=== PATIENT | female | born 1935 | race Caucasian/White ===

== ENCOUNTER 2025-02-26 11:05 | Emergency (ER) | payer MEDICARE, SELFPAY ==
--- OUTSIDE RECORDS SUMMARY | 2025-02-26 11:11 | XMS_ITS | Encounter Summary ---
Author Organization [facility] Address [address] [place] [address] Care Team Providers Care Auto Emissions Technician Name Role Phone Bandar Zaman MD Primary Care Provider Encounter Details Date Type Department Care Team (Late st Contact Info) Description 12/16/1998 Outpatient Historical [facility] [place] [address] 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
--- OUTSIDE RECORDS SUMMARY | 2025-02-26 11:11 | XMS_ITS | Encounter Summary ---
Author Organization [facility] Address [address] [place] [address] Care Team Providers Care Re Examiner Name Role Phone Bandar Zaman MD Primary Care Provider Encounter Details Date Type Department Care Team (Latest Contact Info) Description 09/23/1997 Outpatient Historical [facility] [place] [address] [place] [address] Josef Christianson MD NO ADDRESS ON FILE Benign neoplasm of skin of other and unspecified parts of face (Primary Dx); Actinic keratosis Social History Tobacco Use Types Packs/Day Years Used Date Smoking Tobacco: Never Assessed Comments Unknown Sex and Gender Information Value Date Recorded Sex Assigned at Not on file 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
--- OUTSIDE RECORDS SUMMARY | 2025-02-26 11:11 | XMS_ITS | Encounter Summary ---
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 (Primary Dx); Pure hypercholesterolem; SCREENING MAL NEOP-CERVIX Social History Tobacco Use Types Packs/Day Years Used Date Smoking Tobacco: Never Assessed Comments Unknown Sex and Gender Information Value Date Recorded Sex Assigned at Not on file 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 Gender Identity Not on file Sexual Orientation Not on file documented as of this encounter Plan of Treatment Not on file documented as of this encounter Visit Diagnoses Diagnosis Encounter for long-term (current) use of other medications- Primary Pure hypercholesterolem Pure hypercholesterolemia Screening for malignant neoplasm of the cervix documented in this encounter Care Teams Power And Recovery Supervisor Relationship Specialty Start Date End Date Bandar Zaman MD [address] [facility] [address] [place] [phone] PCP - General Internal Medicine 05/03/16 documented as of this encounter
--- OUTSIDE RECORDS SUMMARY | 2025-02-26 11:11 | XMS_ITS | Encounter Summary ---
Author Organization [facility] Address [address] [place] [address] Care Team Providers Care First Aid Instructor Name Role Phone Bandar Zaman MD Primary Care Provider Encounter Details Date Type Department Care Team (Latest Contact Info) Description 12/10/1997 Outpatient [facility] [address] [place] [address] Bandar Zaman MD [address] [place] [address] Other and unspecified hyperlipidemia (Primary Dx); Routine medical exam; Screening for malignant neoplasm of the cervix Social History Tobacco Use Types Packs/Day Years Used Date Smoking Tobacco: Never Assessed Comments Unknown Sex and Gender Information Value Date Recorded Sex Assigned at Not on file 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 Gender Identity Not on file Sexual Orientation Not on file documented as of this encounter Plan of Treatment Not on file documented as of this encounter Visit Diagnoses Diagnosis Other and unspecified hyperlipidemia- Primary Routine medical exam Routine general medical examination at a health care facility Screening for malignant neoplasm of the cervix documented in this encounter Care Teams First Aid Instructor Relationship Specialty Start Date End Date Bandar Zaman MD [address] [place] [id number] PCP - General Internal Medicine 05/03/16 documented as of this encounter
--- OUTSIDE RECORDS SUMMARY | 2025-02-26 11:11 | XMS_ITS | Clinical Summary ---
Author Organization [facility] Address [address] [address] Care Team Providers Care Embedder Name Role Phone Bandar Zaman MD Primary Care Provider [phone] Social History Tobacco Use Types Packs/Day Years Used Date Smoking Tobacco: Never Assessed Comments Unknown Sex and Gender Information Value Date Recorded Sex Assigned at Not on file Legal Sex Female 1:23 PM EST Gender Identity Not on file Sexual Orientation Not on file Plan of Treatment Health Maintenance Due Date Last Done Comments Influenza Vaccine (#1) 2025 9, 03/11/2018, 03/27/2017, Additional history exists Pneumococcal Vaccine: 50+ Years Completed 11/15/2016, 09/18/2009, 04/08/2003 Hepatitis B Vaccine Aged Out No longe r eligible based on patient's age to complete this topic [place] [address] Medicare Care Teams Embedder Relationship Specialty Start Date End Date Bandar Zaman MD [address] [facility] [address] [place] [address] PCP - General Internal Medicine 08/03/22
--- OUTSIDE RECORDS SUMMARY | 2025-02-26 11:11 | XMS_ITS | Clinical Summary ---
Author Organization [facility] Address [address] [place] [address] Care Team Providers Care Floor Broker Name Role Phone Bandar Zaman MD Primary Care Provider [phone] Allergies Active Allergy Reactions Criticality Noted Date Comments Atorvastatin Muscle Pain Low 05/04/2008 Olmesartan Itching Low 12/22/2024 Medications docusate sodium (Stool Softener) 100 mg capsule Take 100 mg by mouth 1 time daily as needed. 11/13/19 19 Active aspirin (ECOTRIN EC) 81 mg Tablet, Delayed Release (E.C.) Take 81 mg by mouth daily. Active multivitamin (DAILY-ANNALEE) tablet Take 1 Tablet by mouth daily. Active magnesium oxide (MAG-OX) 400 mg (241.3 mg magnesium) tablet Take 1 Tablet (400 mg) by mouth daily. 08/06/19 23 Active mupirocin (BACTROBAN) 2 % Ointment Apply to affected area daily. 15 Gram 1 10/13/19 23 Active Additional Information Patient not taking.Reported on 12/22/2024 furosemide (LASIX) 40 mg tablet TAKE ONE TABLET BY MOUTH DAILY 100 Tablet 3 11/05/19 25 Active potassium CHLORIDE (KLOR-CON M10) 10 mEq Extended Release tablet TAKE 1 TABLET EVERY DAY 90 Tablet 3 11/11/19 25 Active metoprolol tartrate (LOPRESSOR) 50 mg tabletIndicatio ns:Essential hypertension TAKE 1 TABLET TWICE DAILY 180 Tablet 3 11/11/19 25 Active rosuvastatin (CRESTOR) 20 mg tablet Take 1 Tablet (20 mg) by mouth daily at bedtime. 100 Tablet 3 12/23/19 25 Active Eliquis 2.5 mg tabletIndicatio ns:Paroxysmal atrial fibrillation with rapid ventricular response (CMS/HCC) TAKE 1 TABLET TWICE DAILY 180 Tablet 3 02/07/20 25 Active apixaban (Eliquis) 2.5 mg tabletIndicatio ns:Paroxysmal atrial fibrillation with rapid ventricular response (CMS/HCC) TAKE 1 TABLET TWICE DAILY 200 Tablet 3 04/18/20 24 025 Discontinued Active Problems Problem Noted Date Diagnosed Date Prediabetes 08/19/2024 Congestive heart failure 11/26/2022 Multinodular goiter 06/02/2015 Essential hypertension 05/11/2011 Old myocardial infarction 10/31/2010 ASCVD (arteriosclerotic cardiovascular disease) 12/12/2009 Hypercholesterolemia 05/12/2008 Resolved Problems Problem Noted Date Diagnosed Date Resolved Date Hyponatremia 08/02/2022 12/22/2024 Moderate protein-calorie malnutrition 07/31/2022 08/11/2022 Acute respiratory failure with hypoxia 07/30/2022 08/02/2022 Paroxysmal atrial fibrillati on with rapid ventricular response 07/29/2022 12/21/2023 Acute on chronic diastolic ( congestive) heart failure 07/29/2022 12/18/2022 Elevated d-dimer 07/29/2022 11/29/2022 Hypoxia 07/29/2022 08/02/2022 At risk for malnutrition 07/29/2022 Pleural effusion 07/29/2022 08/11/2022 Chronic kidney disease, stage III (moderate) 5 11/19/2017 Encounter for long-term (cur rent) use of other medications 10/13/2009 11/15/2016 Coronary stent 10/12/2009 11/15/2016 Acute myocardial infarction, unspecified site, initial episode of care 10/12/2009 11/20/2018 Encounters Date Type Department Care Team Description 02/25/2025 External Device Data [facility] ABSTRACTION Provider, Abstract 02/06/2025 Refill [facility] [address] [place] [address] Bandar Zaman MD Paroxysmal atrial fibrillation with rapid ventricular response (CMS/HCC) 01/28/2025 External Device Data [facility] ABSTRACTION Provider, Abstract 12/30/2024 External Device Data [facility] ABSTRACTION Provider, Abstract 12/22/2024 2:00 PM CDT Office Visit [facility] [address] [place] [address] Bandar Zaman MD Routine general medical examination at a health care facility (Primary Dx); ASCVD (arteriosclerotic cardiovascular disease); Chronic diastolic congestive heart failure (CMS/HCC); Essential hypertension; Prediabetes 12/16/2024 9:00 AM CDT Procedure visit [address] [address] 12/08/2024 Refill [facility] [address] [place] [address] Bandar Zaman MD 12/03/2024 Orders Only [facility] [address] [place] [address] Bandar Zaman MD Essential hypertension (Primary Dx); Hypercholesterolemia; Abnormal glucose; Encounter for routine adult health examination without abnormal findings 11/26/2024 External Device Data [facility] ABSTRACTION Provider, Abstract from Last 3 Months Immunizations Immunization Administration Dates Next Due (PFIZER SANDOVAL)(12 YR UP PRIMA RY SERIES) COVID-19 VACCINE - EMERGENCY USE AUTHORIZATION, MRNA, SANDOVAL(PF) 30 MCG/0.3 ML IM SUSP 09/14/2021 (PFIZER)(12 YR UP) COVID-19 VACCINE - EMERGENCY USE AUTHORIZATION, MRNA, [id number](PF) 30 MCG/0.3 ML IM SUSP 03/03/2022,03/24/2021,08/11/2020,07/20 (PNEUMOVAX 23)(50 YRS UP) PN EUMOCOCCAL POLYSACCHARIDE (PPV23) 0.5 ML, IM 04/08/2003 (PREVNAR 13)(6 WKS UP) PNEUM OCOCCAL CONJUGATE (PCV13) 0.5 ML, IM 11/15/2016 (PREVNAR 20)(6 WKS UP) PNEUM OCOCCAL CONJUGATE VACCINE 20-VALENT (PCV20), POLYSACCHARIDE [id number] CONJUGATE, ADJUVANT 0.5 ML (PF) IM 12/21/2023 (SHINGRIX)(50 YRS UP) ZOSTER VACCINE RECOMBINANT, 0.5 ML, IM 03/31/2019 (SPIKEVAX 5-)(12YR UP) COVID-19 VACCINE, MRNA (PF)50 MCG/0.5 ML, IM SYRINGE 04/11/2023 INFLUENZA VACCINE HIGH DOSE QUADRIVALENT 65 YR UP PF IM 03/01/2020 INFLUENZA VACCINE QUADRIVALE NT 3 YR UP PF IM 03/27/2017,03/23/2016 Influenza Seasonal Unspecifi ed Formulation IM 03/26/2023,03/01/2022,03/16/2021,04/18,04/03/2006,04/06/2005,03/23/2004 ,03/25/2003,03/24/1999 Influenza Vaccine High Dose 65+ Yrs IM 9,03/11/2018 Influenza Vaccine Quad Split 3+ Yrs Im 5,03/23/2014 Influenza Vaccine Split 3+ Yrs IM 03/18/2013,04/2012,03/18/2008 Pneumococcal 7-valent conjug ate vaccine IM 09/18/2009 Zoster Vaccine Live SQ 08/25/2009 Family History Medical History Relation Name Comments Respiratory Disease Father Osteoporosis Mother Breast Cancer Neg Hx Relation Name Status Comments Father Mother Social History Tobacco Use Types Packs/Day Years Used Date Smoking Tobacco: Never Smokeless Tobacco: Never Tobacco Cessation:Counseling Given: Not Answered Alcohol Use Standard Drinks/Week Comments No 0 (1 standard drink = 0.6 oz pur e alcohol) Financial Resource Strain Answer Date R ecorded How hard is it for you to pa y for the very basics like food, housing, medical care, and heating? Not hard at all 12/15/2021 Food Insecurity Answer Date Recorded In the past 12 months, have you worried that your food would run out before you had money to buy more? Never true 12/15/2021 In the past 12 months, did y ou run out of food and didn't have money to buy more? Never true 12/15/2021 Transportation Needs Answer Date Record ed In the past 12 months, has l ack of transportation kept you from medical appointments or from getting medications? No 12/15/2021 Lack of Transportation (Non-Medical) Not on file 12/15/2021 Feeling Safe Answer Date Recorded Are you in a relationship wi th someone who hurts you emotionally and/or physically? 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 Gender Identity Not on file Sexual Orientation Not on file Last Filed Vital Signs Vital Sign Reading Time Taken Comments Blood Pressure 126/70 12/22/2024 2:02 PM CDT Pulse 90 12/22/2024 2:02 PM CDT Temperature 36.1 C (97 F) 11/27/2022 11:11 AM CDT Respiratory Rate 18 11/27/2022 8:38 AM CDT Oxygen Saturation 99% 12/22/2024 2:02 PM CDT Inhaled Oxygen Concentration - - Weight 49.9 kg (110 lb) 12/22/2024 2:02 PM CDT Height 158.8 cm (5' 2.5 ) 12/22/2024 2:02 PM CDT Body Mass Index 19.8 12/22/2024 2:02 PM CDT Plan of Treatment Upcoming Encounters Date Type Department Care Team (Late st Contact Info) Description 10/27/2025 9:40 AM CDT Office Visit [facility] [address] [place] [address] Cherie Rodriguez FNP [address] [place] [address] 12/24/2025 1:00 PM CDT Office Visit [facility] [address] [place] [address] Bandar Zaman MD [address] [place] [phone] Health Maintenance Due Date Last Done Comments DTAP/TDAP/TD VACCINES (1 - Tdap) 1954 RSV VACCINE (60+ or ) (1 - 1-dose 75+ series) 2010 OSTEOPOROSIS SCREENING 12/16/2014 12/16/2009, 2009 ZOSTER VACCINE (3 of 3) 05/26/2019 03/31/2019, 08/25 INFLUENZA VACCINE (#1) 2025 , 03/26/2023, 03/01/2022, Additional history exists COVID-19 Vaccine (2023-2 5 season) 2025 02/26/2024, 04/11/2023, 03/03/2022, Additional history exists PNEUMOCOCCAL VACCINE 50+ YEARS Completed 0 12/21/2023, 11/15/2016, 09/18/2009, Additional history exists Medicare Advantage ([place]) Preventative Visit/Annual Wellness Visit Completed 12/22/2024, 12/21/2023, 12/18/2022, Additional history exists Procedures Procedure Name Priority Date/Time Associated Diagnosis Comments TSH REFLEXIVE Routine 12/16/2024 8:35 AM CDT Essential hypertension Hypercholesterolemi a Abnormal glucose Encounter for routine adult health examination without abnormal findings HEMOGLOBIN A1C Routine 12/16/2024 8:35 AM CDT Essential hypertension Hypercholesterolemi a Abnormal glucose Encounter for routine adult health examination without abnormal findings LIPID PANEL Routine 12/16/2024 8:35 AM CDT Essential hypertension Hypercholesterolemi a Abnormal glucose Encounter for routine adult health examination without abnormal findings COMPREHENSIVE METABOLIC PANEL Routine 12/16/2024 8:35 AM CDT Essential hypertension Hypercholesterolemi a Abnormal glucose Encounter for routine adult health examination without abnormal findings CBC WITH DIFFERENTIAL Routine 12/16/2024 8:35 AM CDT Essential hypertension Hypercholesterolemi a Abnormal glucose Encounter for routine adult health examination without abnormal findings XR DEXA BONE DENSITY AXIAL 1 OR MORE SITES Routine 12/16/2009 11:39 AM CDT Closed fracture of lumbar vertebra (CMS/HCC) from Last 3 Months or Most Recently Relevant to Health Maintenance Results * TSH REFLEXIVE (12/16/2024 8:35 AM CDT) TSH 1.45 0.40 - 4.50 mIU/L [facility] Comment: FASTING:YES FASTING: YES Test Performed at: [facility] [address] [place] [address] Darren Juarez MD Blood 12/16/2024 8:35 AM CDT 12/16/2024 8:35 AM CDT us Bandar Zaman MD CHEMISTRY ORDERABLES Final Res ult [facility] [phone] [facility] [address] [place] [address] * (ABNORMAL) CBC WITH DIFFERENTIAL (12/16/2024 8:35 AM CDT) WBC 5.9 3.8 - 10.8 Thousand/u L [facility] RBC 5.18(H) 3.80 - 5.10 Million/uL [facility] HEMOGLOBIN 14.4 11.7 - 15.5 g/dL [facility] HEMATOCRIT 46.8(H) 35.0 - 45.0 % [facility] MCV 90.3 80.0 - 100.0 fL [facility] MCH 27.8 27.0 - 33.0 pg [facility] MCHC 30.8(L) 32.0 - 36.0 g/dL [facility] Comment: For adults, a slight decrease in the calculated MCHC value (in the range of 30 to 32 g/dL) is most likely not clinically significant; however, it should be interpreted with caution in correlation with other red cell parameters and the patient's clinical condition. RDW 13.8 11.0 - 15.0 % [facility] PLATELETS 260 140 - 400 Thousand/u L [facility] MPV 11.1 7.5 - 12.5 fL [facility] NEUTROPHIL ABSOLUTE 3,859 1,500 - 7,800 cells/uL [facility] LYMPHOCYTE ABSOLUTE 1,392 850 - 3,900 cells/uL [facility] MONOCYTE ABSOLUTE 484 200 - 950 cells/uL [facility] EOSINOPHIL ABSOLUTE 118 15 - 500 cells/uL [facility] BASOPHILS ABSOLUTE 47 0 - 200 cells/uL [facility] NEUTROPHIL 65.4 % [facility] LYMPHOCYTES 23.6 % [facility] MONOCYTE 8.2 % [facility] EOSINOPHILS 2.0 % [facility] BASOPHILS 0.8 % [facility] Comment: FASTING:YES FASTING: YES Test Performed at: [facility] [address] [place] [address] Darren Juarez MD Blood 12/16/2024 8:35 AM CDT 12/16/2024 8:35 AM CDT us Bandar Zaman MD HEMATOLOGY ORDERABLES Final Re sult [facility] [phone] [facility] [address] [place] [address] * (ABNORMAL) HEMOGLOBIN A1C (12/16/2024 8:35 AM CDT) HEMOGLOBIN A1C 6.3(H) <5.7 % [facility] Comment: For someone without known diabetes, a hemoglobin A1c value between 5.7% and 6.4% is consistent with prediabetes and should be confirmed with a follow-up test. For someone with known diabetes, a value <7% indicates that their diabetes is well controlled. A1c targets should be individualized based on duration of diabetes, age, comorbid conditions, and other considerations. This assay result is consistent with an increased risk of diabetes. Currently, no consensus exists regarding use of hemoglobin A1c for diagnosis of diabetes for children. ESTIMATED AVERAGE GLUCOSE (MG/DL) 134 mg/dL [facility] ESTIMATED AVERAGE GLUCOSE (MMOL/L) 7.4 mmol/L [facility] Comment: FASTING:YES FASTING: YES Test Performed at: [facility] [address] [place] [address] Darren Juarez MD Blood 12/16/2024 8:35 AM CDT 12/16/2024 8:35 AM CDT us Bandar Zaman MD CHEMISTRY ORDERABLES Final Res ult [facility] [phone] [facility] [place] [address] * LIPID PANEL (12/16/2024 8:35 AM CDT) CHOLESTEROL 165 <200 mg/dL [facility] HDL 71 > OR = 50 mg/dL [facility] TRIGLYCERIDE 84 <150 mg/dL [facility] LDL CALCULATED 78 mg/dL (calc) [facility] Comment: Reference range: <100 Desirable range <100 mg/dL for primary prevention; <70 mg/dL for patients with CHD or diabetic patients with > or = 2 CHD risk factors. LDL-C is now calculated using the Samy-Tian calculation, which is a validated novel method providing better accuracy than the Friedewald equation in the estimation of LDL-C. Samy SS et al. CAL. 2013;310(19): 5640-7588 (http://education.[employer]Kinoos/faq/AQL475) CHOL/HDL RATIO 2.3 <5.0 (calc) [facility] NON-HDL CHOLESTEROL 94 <130 mg/dL (calc) [facility] Comment: For patients with diabetes plus 1 major ASCVD risk factor, treating to a non-HDL-C goal of <100 mg/dL (LDL-C of <70 mg/dL) is considered a therapeutic option. Test Performed at: [facility] [address] [place] [address] Darren Juarez MD Blood 12/16/2024 8:35 AM CDT 12/16/2024 8:35 AM CDT us Bandar Zaman MD CHEMISTRY ORDERABLES Final Res ult [facility] [phone] [facility] [address] [facility] [place] [address] * (ABNORMAL) COMPREHENSIVE METABOLIC PANEL (12/16/2024 8:35 AM CDT) GLUCOSE 105(H) 65 - 99 mg/dL [facility] Comment: Fasting reference interval For someone without known diabetes, a glucose value between 100 and 125 mg/dL is consistent with prediabetes and should be confirmed with a follow-up test. BUN 38(H) 7 - 25 mg/dL [facility] CREATININE 1.38(H) 0.60 - 0.95 mg/dL [facility] GFR 37(L) > OR = 60 mL/min/1.7 3m2 [facility] BUN/CREAT RATIO 28(H) 6 - 22 (calc) [facility] SODIUM 139 135 - 146 mmol/L [facility] POTASSIUM 4.0 3.5 - 5.3 mmol/L [facility] CHLORIDE 98 98 - 110 mmol/L [facility] CO2 32 20 - 32 mmol/L [facility] CALCIUM 9.6 8.6 - 10.4 mg/dL [facility] TOTAL PROTEIN 7.6 6.1 - 8.1 g/dL [facility] ALBUMIN 4.0 3.6 - 5.1 g/dL [facility] GLOBULIN 3.6 1.9 - 3.7 g/dL (calc) [facility] ALBUMIN/GLOBULIN RATIO 1.1 1.0 - 2.5 (calc) [facility] BILIRUBIN TOTAL 0.7 0.2 - 1.2 mg/dL [facility] ALKALINE PHOSPHATASE 71 37 - 153 U/L [facility] AST 24 10 - 35 U/L [facility] ALT 13 6 - 29 U/L [facility] Comment: FASTING:YES FASTING: YES Test Performed at: [facility] [address] [place] [address] Darren Juarez MD Blood 12/16/2024 8:35 AM CDT 12/16/2024 8:35 AM CDT us Bandar Zaman MD CHEMISTRY ORDERABLES Final Res ult [facility] [phone] [facility] [address] [place] [address] * XR DEXA BONE DENSITY AXIAL 1 OR MORE SITES (12/16/2009 11:39 AM CDT) Anatomical Region Laterality Modality Other Impressions 12/17/2009 4:08 PM CDT Impression: The patient does not have osteoporosis or significant osteopenia at this time and, therefore, is not at increased risk for fragility fracture. She has only mild osteopenia of both the lumbar spine and left hip. Risk factor control might be considered in an effort to prevent further bone mineral loss. Consideration might also be given to repeating this examination in 3-4 years to assess patient's rate of bone mineral loss. isma 0955 AM - uploaded from [employer]- Narrative 12/17/2009 4:08 PM CDT DEXA Evaluation of the Lumbar Spine and Left Proximal Femur: Reason for Consultation: Status post menopause. Compression fracture. Evaluation of bone mineral density. The following absorptiometry data were obtained. The overall technical quality of the study is good. Serial measurement number one. L1 through L2 BMD (g/cm2): 1.003 Young adult %: 86 Adult T-score: -1.4 Left Femoral Neck BMD (g/cm2): 0.859 Young adult %: 83 Adult T-score: -1.3 Left Total Hip BMD (g/cm2): 0.896 Young adult %: 89 Adult T-score: -0.9 The patient demonstrates mild osteopenia of the trabecular bone of her lumbar spine. She has approximately 14% less mineral than the mean projected for a young normal, ages 20-40. She demonstrates mild osteopenia in the neck region and normal bone mineral density of the total hip region of the left hip. Procedure Note Ronny Mckeon MD - 08/24/2022 DEXA Evaluation of the Lumbar Spine and Left Proximal Femur: Reason for Consultation: Status post menopause. Compression fracture. Evaluation of bone mineral density. The following absorptiometry data were obtained. The overall technical quality of the study is good. Serial measurement number one. L1 through L2 BMD (g/cm2): 1.003 Young adult %: 86 Adult T-score: -1.4 Left Femoral Neck BMD (g/cm2): 0.859 Young adult %: 83 Adult T-score: -1.3 Left Total Hip BMD (g/cm2): 0.896 Young adult %: 89 Adult T-score: -0.9 The patient demonstrates mild osteopenia of the trabecular bone of her lumbar spine. She has approximately 14% less mineral than the mean projected for a young normal, ages 20-40. She demonstrates mild osteopenia in the neck region and normal bone mineral density of the total hip region of the left hip. IMPRESSION Impression: The patient does not have osteoporosis or significant osteopenia at this time and, therefore, is not at increased risk for fragility fracture. She has only mild osteopenia of both the lumbar spine and left hip. Risk factor control might be considered in an effort to prevent further bone mineral loss. Consideration might also be given to repeating this examination in 3-4 years to assess patient's rate of bone mineral loss. isma 0955 AM - uploaded from [employer] Scribe- us Sammie Doe MD DIAGNOSTIC IMAGING ORDERABLES F inal Result from Last 3 Months or Most Recently Relevant to Health Maintenance Insurance [facility] MCR Advance Directives For more information, please contact: [phone] * Full Code (Latest Code Status on File) Date Activated Date Inactivated Comments 11/26/2022 12:26 AM 11/27/2022 5:15 PM * NO CPR (In Event of Cardiopulmonary Arrest) Date Activated Date Inactivated Comments 07/29/2022 12:33 PM 08/06/2022 2:51 PM Question Answer Comments Mechanical Ventilation (for respiratory distress) - Invasive (i.e. intubation): No Mechanical Ventilation (for respiratory distress) - Non-Invasive (i.e. BiPAP, CPAP): Yes * Default Full Code - Needs Discussion Date Activated Date Inactivated Comments 07/29/2022 12:31 PM 07/29/2022 12:32 PM * NO CPR (In Event of Cardiopulmonary Arrest) Date Activated Date Inactivated Comments 07/29/2022 12:25 PM 07/29/2022 12:31 PM Question Answer Comments Mechanical Ventilation (for respiratory distress) - Invasive (i.e. intubation): No Mechanical Ventilation (for respiratory distress) - Non-Invasive (i.e. BiPAP, CPAP): Yes Care Teams Floor Broker Relationship Specialty Start Date End Date Bandar Zaman MD [address] [facility] [place] [address] [place] [address] PCP - General Internal Medicine 05/03/16
--- OUTSIDE RECORDS SUMMARY | 2025-02-26 11:11 | XMS_ITS | Encounter Summary ---
Author Organization [facility] Address [address] [place] [address] Care Team Providers Care Trench Digging Machine Operator Name Role Phone Bandar Zaman MD Primary Care Provider [phone] Encounter Details Date Type Department Care Team (Latest Contact Info) Description 05/01/2002 Outpatient [facility] [address] [place] [address] Josef Christianson MD NO ADDRESS ON FILE ACTINIC KERATOSIS (Primary Dx); SEBACEOUS GLAND DIS NEC Social History Tobacco Use Types Packs/Day Years Used Date Smoking Tobacco: Never Assessed Comments Unknown Sex and Gender Information Value Date Recorded Sex Assigned at Not on file Legal Sex Female 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
--- OUTSIDE RECORDS SUMMARY | 2025-02-26 11:11 | XMS_ITS | Encounter Summary ---
Author Organization [facility] Address [address] [place] [address] Care Team Providers Care Roofing Tile Sorter Name Role Phone Bandar Zaman MD Primary Care Provider [phone] Encounter Details Date Type Department Care Team (Latest Contact Info) Description 12/16/1998 Outpatient Historical [facility] [address] [place] [address] Bandar Zaman MD [address] [place] [address] Routine medical exam (Primary Dx); Pure hypercholesterolem; Elevated blood pressure reading without diagnosis of hypertension Social History Tobacco Use Types Packs/Day Years Used Date Smoking Tobacco: Never Assessed Comments Unknown Sex and Gender Information Value Date Recorded Sex Assigned at Not on file 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 Gender Identity Not on file Sexual Orientation Not on file documented as of this encounter Plan of Treatment Not on file documented as of this encounter Visit Diagnoses Diagnosis Routine medical exam- Primary Routine general medical examination at a health care facility Pure hypercholesterolem Pure hypercholesterolemia Elevated blood pressure reading without diagnosis of hypertension documented in this encounter Care Teams Roofing Tile Sorter Relationship Specialty Start Date End Date Bandar Zaman MD [address] [place] [address] PCP - General Internal Medicine 05/03/16 documented as of this encounter
--- OUTSIDE RECORDS SUMMARY | 2025-02-26 11:11 | XMS_ITS | Clinical Summary ---
Author Organization [facility] tone Address [address] [place] [address] Care Team Providers Care Insurance Manager Name Role Phone Bandar Zaman MD Primary Care Provider [phone] Allergies Active Allergy Reactions Criticality Noted Date Comments Atorvastatin Muscle Pain Low 05/04/2008 Medications aspirin (NABEEL) 81 mg Oral Tab Take 2 Tabs by mouth daily. 100 Tab 6 02/13/2012 Active nitroglycerin (NITROSTAT) 0.4 mg Tablet, Sublingual Place 1 Tab under tongue every 5 minutes as needed for Chest Pain. 25 Tab 3 04/07/2014 Active SPONIX ARTHRITIS-MUSCL E PAIN 4-10-0.035 % solution roll-on 11/12/2018 Active STOOL SOFTENER 100 mg capsule 11/12/2018 Acti ve metoprolol tartrate (LOPRESSOR) 25 mg tablet TAKE 1 TABLET (25 MG) BY MOUTH 2 TIMES DAILY. 180 Tablet 4 02/11/2019 Active ezetimibe (ZETIA) 10 mg tablet TAKE 1 TABLET EVERY DAY 90 Tablet 3 02/13/2020 Active losartan (COZAAR) 100 mg tablet TAKE 1 TABLET EVERY DAY 90 Tablet 3 08/02/2020 Active Active Problems Problem Noted Date Diagnosed Date Multinodular goiter 06/02/2015 Essential hypertension 05/11/2011 Old myocardial infarction 10/31/2010 ASCVD (arteriosclerotic cardiovascular disease) 12/12/2009 Hypercholesterolemia 05/12/2008 Resolved Problems Problem Noted Date Diagnosed Date Resolved Date Chronic kidney disease, stage III (moderate) 5 11/19/2017 Encounter for long-term (cur rent) use of other medications 10/13/2009 11/15/2016 Coronary stent 10/12/2009 11/15/2016 Acute myocardial infarction, unspecified site, initial episode of care 10/12/2009 11/20/2018 Immunizations Immunization Administration Dates Next Due (ValueClick)(12 YR UP) COVID-19 VACCINE - EMERGENCY USE AUTHORIZATION, MRNA, [id number](PF) 30 MCG/0.3 ML IM SUSP 07/20/2020 (PNEUMOVAX 23)(50 YRS UP) PN EUMOCOCCAL POLYSACCHARIDE (PPV23) 0.5 ML, IM 04/08/2003 (PREVNAR 13)(6 WKS UP) PNEUM OCOCCAL CONJUGATE (PCV13) 0.5 ML, IM 11/15/2016 (SHINGRIX)(50 YRS UP) ZOSTER VACCINE RECOMBINANT, 0.5 ML, IM 03/31/2019 INFLUENZA VACCINE HIGH DOSE QUADRIVALENT 65 YR UP PF IM 03/01/2020 INFLUENZA VACCINE QUADRIVALE NT 3 YR UP PF IM 03/27/2017,03/23/2016 Influenza Seasonal Unspecifi ed Formulation IM 04/18/2009,04/03/2006,04/06/2005,03/23,03/25/2003,03/24/1999 Influenza Vaccine High Dose 65+ Yrs IM [...] Never Smokeless Tobacco: Never Tobacco Cessation:Counseling Given: No Alcohol Use Standard Drinks/Week Comments No 0 (1 standard drink = 0.6 oz pur e alcohol) Comments No Sex and Gender Information Value Date Recorded Sex Assigned at Not on file Legal Sex Female 6:08 AM DIRECTOR ORACLE RETAIL Gender Identity Not on file Sexual Orientation Not on file Occupation Industry Job Start Date Job End Date Not on file Not on file Not on file Not on file Last Filed Vital Signs Vital Sign Reading Time Taken Comments Blood Pressure 160/98 12/01/2019 8:07 AM CDT Pulse 67 12/01/2019 8:07 AM CDT Temperature 36.1 C (97 F) 12/07/2015 8:07 AM CDT Respiratory Rate 16 05/03/2016 10:02 AM DIRECTOR ORACLE RETAIL Oxygen Saturation 98% 12/01/2019 8:07 AM CDT Inhaled Oxygen Concentration - - Weight 78.9 kg (174 lb) 12/01/2019 8:07 AM CDT Height 165.7 cm (5' 5.25 ) 12/01/2019 8:07 AM CD T Body Mass Index 28.73 12/01/2019 8:07 AM CDT Plan of Treatment Health Maintenance Due Date Last Done Comments DTAP/TDAP/TD VACCINES (1 - Tdap) 1954 RSV VACCINE (60+ or ) (1 - 1-dose 75+ series) 2010 OSTEOPOROSIS SCREENING 12/16/2014 12/16/2009 ZOSTER VACCINE (3 of 3) 05/26/2019 03/31/2019, 08/25 INFLUENZA VACCINE (#1) 2025 0, 03/19/2019, 03/11/2018, Additional history exists COVID-19 Vaccine (2 - 2024-2 6 season) 2025 07/20/2020 PNEUMOCOCCAL VACCINE 50+ YEARS Completed 0 11/15/2016, 09/18/2009, 04/08/2003 Procedures Procedure Name Priority Date/Time Associated Diagnosis Comments XR DEXA BONE DENSITY AXIAL 1 OR MORE SITES Routine 12/16/2009 11:39 AM CDT Compression Fracture of L4 Lumbar Vertebra (CMS/HCC) from Last 3 Months or Most Recently Relevant to Health Maintenance Results * XR DEXA BONE DENSITY AXIAL 1 OR MORE SITES (12/16/2009 11:39 AM CDT) Anatomical Region Laterality Modality Nuclear Medicine 12/16/2009 11:2 7 AM CDT Impressions 12/17/2009 4:08 PM CDT Impression: The [...] loss. isma 0955 AM - uploaded from [employer]- Rank By Search 12/17/2009 4:08 PM CDT DEXA Evaluation of [...] hip. Procedure Note Ronny Mckeon MD - 12/17/2009 DEXA Evaluation of the Lumbar Spine and [...] loss. isma 0955 AM - uploaded from [employer]- us Sammie Doe MD DIAGNOSTIC IMAGING ORDERABLES F inal Result from Last 3 Months or Most Recently Relevant to Health Maintenance Advance Directives For more information, please contact: [phone] * Full Code (Latest Code Status on File) Date Activated Date Inactivated Comments 09/29/2009 11:26 AM 09/30/2009 12:05 PM * Full Code Date Activated Date Inactivated Comments 09/29/2009 6:52 AM 09/29/2009 11:26 AM * Full Code Date Activated Date Inactivated Comments 09/16/2009 5:53 PM 09/18/2009 3:11 PM * Full Code Date Activated Date Inactivated Comments 09/16/2009 3:32 PM 09/16/2009 5:53 PM Care Teams Insurance Manager Relationship Specialty Start Date End Date Bandar Zaman MD [address] [facility] [address] [place] [phone] PCP - General Internal Medicine 05/03/16
--- OUTSIDE RECORDS SUMMARY | 2025-02-26 11:11 | XMS_ITS | Encounter Summary ---
Author Organization [facility] Address [address] [place] [address] Care Team Providers Care Director Of Vital Statistics Name Role Phone Bandar Zaman MD Primary Care Provider [phone] Encounter Details Date Type Department Care Team (Latest Contact Info) Description 03/25/2001 Outpatient Historical [facility] [place] [address] [place] [phone] Adina Savage MD NO ADDRESS ON FILE Other screening mammogram (Primary Dx) Social History Tobacco Use Types Packs/Day Years Used Date Smoking Tobacco: Never Assessed Comments Unknown Sex and Gender Information Value Date Recorded Sex Assigned at Not on file Legal Sex Female 6:08 AM BOW STAPLER Gender Identity Not on file Sexual Orientation Not on file documented as of this encounter Plan of Treatment Not on file documented as of this encounter Visit Diagnoses Diagnosis Other screening mammogram- Primary documented in this encounter Care Teams Director Of Vital Statistics Relationship Specialty Start Date End Date Bandar Zaman MD [address] [phone] PCP - General Internal Medicine 05/03/16 documented as of this encounter
--- OUTSIDE RECORDS SUMMARY | 2025-02-26 11:11 | XMS_ITS | Encounter Summary ---
Author Organization [facility] Address [address] [place] [address] Care Team Providers Care Lead Manufacturing Engineering Tech Name Role Phone Bandar Zaman MD Primary Care Provider [phone] Encounter Details Date Type Department Care Team (Latest Contact Info) Description 10/29/1997 Outpatient Historical [facility] Dermatology- [facility] [place] [address] [place] [address] Josef Christianson MD NO ADDRESS ON FILE Benign neoplasm of skin of other and unspecified parts of face (Primary Dx); Actinic keratosis Social History Tobacco Use Types Packs/Day Years Used Date Smoking Tobacco: Never Assessed Comments Unknown Sex and Gender Information Value Date Recorded Sex Assigned at Not on file Legal Sex Female 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
--- OUTSIDE RECORDS SUMMARY | 2025-02-26 11:11 | XMS_ITS | Encounter Summary ---
Author Organization [employer] [facility] Address [address] [place] [address] Care Team Providers Care Hoop Riveting Machine Operator Helper Name Role Phone Bandar Zaman MD Primary Care Provider [phone] Encounter Details Date Type Department Care Team (Late st Contact Info) Description 02/25/2025 External Device Data [facility] ABSTRACTION Provider, Abstract NO ADDRESS ON FILE Social History Tobacco Use Types Packs/Day Years Used Date Smoking Tobacco: Never Smokeless Tobacco: Never Alcohol Use Standard Drinks/Week Comments No 0 [...] on file Legal Sex Female 7:32 AM TECHNICAL MARKETING CONSULTANT Gender Identity Not on file Sexual Orientation Not on file documented as of this encounter Plan of Treatment Upcoming Encounters Date Type Department Care Team (Late st Contact Info) Description 10/27/2025 9:40 AM CDT Office Visit [facility] [address] [place] [address] Cherie Rodriguez, [facility] [address] [place] [address] 12/24/2025 1:00 PM CDT Office Visit [facility] Int Med-[facility] [address] [place] [address] Bandar Zaman MD [address] [place] [address] documented as of this encounter Visit Diagnoses Not on filedocumented in this encounter Care Teams Hoop Riveting Machine Operator Helper Relationship Specialty Start Date End Date Bandar Zaman MD [address] [place] [address] PCP - General Internal Medicine 05/03/16 documented as of this encounter
--- OUTSIDE RECORDS SUMMARY | 2025-02-26 11:11 | XMS_ITS | Encounter Summary ---
Author Organization [facility] Address [address] [place] [address] Care Team Providers Care Block Feeder Name Role Phone Bandar Zaman MD Primary Care Provider [phone] Encounter Details Date Type Department Care Team (Latest Contact Info) Description 03/25/2001 Outpatient [facility] D[facility] [address] [place] [address] Jadon Perdomo MD [address] [place] [phone] Other ovarian failure (Primary Dx); Special screening for osteoporosis Social History Tobacco Use Types Packs/Day Years Used Date Smoking Tobacco: Never Assessed Comments Unknown Sex and Gender Information Value Date Recorded Sex Assigned at Not on file Legal Sex Female 6:08 AM NEWS PRODUCTION SUPERVISOR Gender Identity Not on file Sexual Orientation Not on file documented as of this encounter Plan of Treatment Not on file documented as of this encounter Visit Diagnoses Diagnosis Other ovarian failure- Primary Special screening for osteoporosis documented in this encounter Care Teams Block Feeder Relationship Specialty Start Date End Date Bandar Zaman MD [address] [place] [address] PCP - General Internal Medicine 05/03/16 documented as of this encounter
--- OUTSIDE RECORDS SUMMARY | 2025-02-26 11:11 | XMS_ITS | Encounter Summary ---
Author Organization [facility] Address [address] [place] [address] Care Team Providers Care Roll Or Tape Edge Machine Operator Name Role Phone Bandar Zaman MD Primary Care Provider [phone] Encounter Details Date Type Department Care Team (Latest Contact Info) Description 04/15/2002 Outpatient Historical [facility] [place] [address] 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
--- OUTSIDE RECORDS SUMMARY | 2025-02-26 11:11 | XMS_ITS | Encounter Summary ---
Author Organization [facility] Address [address] [place] [address] Care Team Providers Care Annealing Furnace Operator Name Role Phone Bandar Zaman MD Primary Care Provider Encounter Details Date Type Department Care Team (Latest Contact Info) Description 12/17/1997 Outpatient Historical [facility] [place] [address] [place] [phone] Adina Savage MD NO ADDRESS ON FILE Other screening mammogram (Primary Dx) Social History Tobacco Use Types Packs/Day Years Used Date Smoking Tobacco: Never Assessed Comments Unknown Sex and Gender Information Value Date Recorded Sex Assigned at Not on file Legal Sex Female 6:08 AM CARD SORTER Gender Identity Not on file Sexual Orientation Not on file documented as of this encounter Plan of Treatment Not on file documented as of this encounter Visit Diagnoses Diagnosis Other screening mammogram- Primary documented in this encounter Care Teams Annealing Furnace Operator Relationship Specialty Start Date End Date Bandar Zaman MD [address] [phone] PCP - General Internal Medicine 05/03/16 documented as of this encounter
--- OUTSIDE RECORDS SUMMARY | 2025-02-26 11:11 | XMS_ITS | Encounter Summary ---
Author Organization [employer] [facility] Address [address] [place] [address] Care Team Providers Care Index Clerk Name Role Phone Bandar Zaman MD Primary Care Provider Reason for Referral * Outpatient Services (Routine) - Closed Specialty Diagnoses / Procedures Referred By Suleman krishnamurthy Referred To Contact Diagnoses Other screening mammogram Procedures MAMMO DIGITAL SCREEN BILAT MOBILE Jeffry Conteh MD [address] [place] [address] Phone: tel: fax: Referral ID Status Reason Start Date Expiration Date Visits Re quested Visits Authorized [id number] Closed 10/02/2011 10/01/2012 1 1 Encounter Details Date Type Department Care Team (Latest Contact Info) Description 10/02/2011 Ancillary Orders [facility] [place] [address] [address] Jeffry Conteh MD [address] [place] [address] Other screening mammogram Social History Tobacco Use Types Packs/Day Years Used Date Smoking Tobacco: Never Smokeless Tobacco: Never Alcohol Use Standard Drinks/Week Comments No 0 (1 standard drink = 0.6 oz pur e alcohol) Comments No Sex and Gender Information Value Date Recorded Sex Assigned at Not on file Legal Sex Female 6:08 AM BILLING REP Gender Identity Not on file Sexual Orientation Not on file documented as of this encounter Plan of Treatment Not on file documented as of this encounter Results * MAMMO DIGITAL SCREEN BILAT MOBILE (10/09/2011 9:23 AM CDT) Anatomical Region Laterality Modality Breast Bilateral Mammography Narrative 10/10/2011 10:56 AM CDT Bilateral Mammogram Reason for Exam: Screening Comparison: Comparison is made with the prior exam(s) dated 12/23/2008. Findings: Bilateral CC and MLO views were obtained. This examination was reviewed with the aid of a computer-aided detection system(CAD). The breast tissue density is average. No significant new findings since the prior mammogram(s). Procedure Note Duran Tatum MD - 10/10/2011 Bilateral Mammogram Reason for Exam: Screening Comparison: Comparison is made with the prior exam(s) dated 12/23/2008. Findings: Bilateral CC and MLO views were obtained. This examination was reviewed with the aid of a computer-aided detectionsystem(CAD). The breast tissue density is average. No significant new findings since the prior mammogram(s). us Jeffry Conteh MD MAMMO ORDERABLES Final Resul t documented in this encounter Visit Diagnoses Diagnosis Other screening mammogram Other screening mammogram documented in this encounter Care Teams Index Clerk Relationship Specialty Start Date End Date Bandar Zaman MD [address] [facility] [address] [place] [address] PCP - General Internal Medicine 05/03/16 documented as of this encounter
--- OUTSIDE RECORDS SUMMARY | 2025-02-26 11:11 | XMS_ITS | Encounter Summary ---
Author Organization [facility] Address [address] [place] [address] Care Team Providers Care Lard Maker Name Role Phone Bandar Zaman MD Primary Care Provider [phone] Encounter Details Date Type Department Care Team (Late st Contact Info) Description 12/10/1997 Outpatient Historical [facility] [address] [place] [address] Hao Wilson MD [address] [place] [address] Unspecified general medical examination (Primary Dx) Social History Tobacco Use Types Packs/Day Years Used Date Smoking Tobacco: Never Assessed Comments Unknown Sex and Gender Information Value Date Recorded Sex Assigned at Not on file Legal Sex Female 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
--- OUTSIDE RECORDS SUMMARY | 2025-02-26 11:11 | XMS_ITS | Encounter Summary ---
Author Organization [facility] Address [address] Ma: [place] [address] Care Team Providers Care Kiln Repairer Name Role Phone Bandar Zaman MD Primary Care Provider [phone] Encounter Details Date Type Department Care Team (Late st Contact Info) Description 03/25/2001 Outpatient Historical Jadon Perdomo MD [address] [place] [address] Social History Tobacco Use Types Packs/Day Years Used Date Smoking Tobacco: Never Assessed Comments Unknown Sex and Gender Information Value Date Recorded Sex Assigned at Not on file Legal Sex Female 6:08 AM LEAD PONY RIDER Gender Identity Not on file Sexual Orientation Not on file documented as of this encounter Plan of Treatment Not on file documented as of this encounter Visit Diagnoses Not on filedocumented in this encounter Care Teams Kiln Repairer Relationship Specialty Start Date End Date Bandar Zaman MD [address] [facility] [address] [place] [phone] PCP - General Internal Medicine 05/03/16 documented as of this encounter
--- OUTSIDE RECORDS SUMMARY | 2025-02-26 11:11 | XMS_ITS | Encounter Summary ---
Author Organization [facility] Address [address] [place] [address] Care Team Providers Care Casing Material Weigher Name Role Phone Bandar Zaman MD Primary Care Provider [phone] Encounter Details Date Type Department Care Team (Latest Contact Info) Description 05/23/2011 Ancillary Orders [facility] Pre-Registration [place] CALL TO MAKE APPOINTMENT ONLY [address] [place] [address] Jeffry Conteh MD [address] [place] [address] Other screening mammogram Social History Tobacco Use Types Packs/Day Years Used Date Smoking Tobacco: Never Smokeless Tobacco: Never Alcohol Use Standard Drinks/Week Comments No 0 (1 standard drink = 0.6 oz pur e alcohol) Comments No Sex and Gender Information Value Date Recorded Sex Assigned at Not on file Legal Sex Female 6: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
--- OUTSIDE RECORDS SUMMARY | 2025-02-26 11:11 | XMS_ITS | Encounter Summary ---
Author Organization [facility] Address [address] [place] [address] Care Team Providers Care Longwall Shearer Operator Name Role Phone Bandar Zaman MD Primary Care Provider [phone] Encounter Details Date Type Department Care Team (Latest Contact Info) Description 08/13/2000 Outpatient Historical [facility] Dermatology- [facility] [place] [address] [place] [phone] Josef Christianson MD NO ADDRESS ON FILE Actinic keratosis (Primary Dx); Benign [place] skin trunk Social History Tobacco Use Types Packs/Day Years Used Date Smoking Tobacco: Never Assessed Comments Unknown Sex and Gender Information Value Date Recorded Sex Assigned at Not on file Legal Sex Female 6:08 AM 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
--- OUTSIDE RECORDS SUMMARY | 2025-02-26 11:11 | XMS_ITS | Encounter Summary ---
Author Organization [facility] Address [address] Ma: [place] [address] Care Team Providers Care Escrow Clerk Name Role Phone Bandar Zaman MD Primary Care Provider Encounter Details Date Type Department Care Team (Late st Contact Info) Description 02/19/2002 Outpatient Historical Errol Ron, OD [address] [place] [address] Social History Tobacco Use Types Packs/Day Years Used Date Smoking Tobacco: Never Assessed Comments Unknown Sex and Gender Information Value Date Recorded Sex Assigned at Not on file Legal Sex Female 6:08 AM PAPER FINISHER Gender Identity Not on file Sexual Orientation Not on file documented as of this encounter Plan of Treatment Not on file documented as of this encounter Visit Diagnoses Not on filedocumented in this encounter Care Teams Escrow Clerk Relationship Specialty Start Date End Date Bandar Zaman MD [address] [facility] [address] [place] [address] PCP - General Internal Medicine 05/03/16 documented as of this encounter
--- OUTSIDE RECORDS SUMMARY | 2025-02-26 11:11 | XMS_ITS | Encounter Summary ---
Author Organization [facility] Address [address] [place] [address] Care Team Providers Care Pin Setter Name Role Phone Bandar Zaman MD Primary Care Provider Encounter Details Date Type Department Care Team (Late st Contact Info) Description 04/15/2002 Outpatient Historical [facility] Juan Miguel De Jesus Oneida [address] [place] [address] Bandar Zaman MD [address] [place] [address] SCREENING MAMM-MAILG NEOPL-OTHER (Primary Dx) Social History Tobacco Use Types Packs/Day Years Used Date Smoking Tobacco: Never Assessed Comments Unknown Sex and Gender Information Value Date Recorded Sex Assigned at Not on file Legal Sex Female 6:08 AM BIZTALK SOFTWARE DEVELOPER Gender Identity Not on file Sexual Orientation Not on file documented as of this encounter Plan of Treatment Not on file documented as of this encounter Visit Diagnoses Diagnosis Other screening mammogram- Primary documented in this encounter Care Teams Pin Setter Relationship Specialty Start Date End Date Bandar Zaman MD [address] [place] [address] PCP - General Internal Medicine 05/03/16 documented as of this encounter
--- OUTSIDE RECORDS SUMMARY | 2025-02-26 11:12 | XMS_ITS | Encounter Summary ---
Author Organization [facility] Address [address] [place] [address] Care Team Providers Care Adjunct English Instructor Name Role Phone Bandar Zaman MD Primary Care Provider Encounter Details Date Type Department Care Team (Latest Contact Info) Description 04/11/2000 Outpatient Historical [facility] Bandar Zaman MD [address] [place] [address] Unspecified general medical examination (Primary Dx); Pure hypercholesterolem Social History Tobacco Use Types Packs/Day Years Used Date Smoking Tobacco: Never Assessed Comments Unknown Sex and Gender Information Value Date Recorded Sex Assigned at Not on file Legal Sex Female 6:08 AM DIESEL PILE HAMMER OPERATOR Gender Identity Not on file Sexual Orientation Not on file documented as of this encounter Plan of Treatment Not on file documented as of this encounter Visit Diagnoses Diagnosis Unspecified general medical examination- Primary Pure hypercholesterolem Pure hypercholesterolemia documented in this encounter Care Teams Adjunct English Instructor Relationship Specialty Start Date End Date Bandar Zaman MD [address] [place] [address] PCP - General Internal Medicine 05/03/16 documented as of this encounter
--- OUTSIDE RECORDS SUMMARY | 2025-02-26 11:12 | XMS_ITS | Encounter Summary ---
Author Organization [facility] Address [address] [place] [address] Care Team Providers Care Group Director Name Role Phone Bandar Zaman MD Primary Care Provider Encounter Details Date Type Department Care Team (Latest Contact Info) Description 08/17/1999 Outpatient Historical [facility] [address] [address] Sammie Doe MD [address] [place] [address] Acute bronchitis (Primary Dx) Social History Tobacco Use Types Packs/Day Years Used Date Smoking Tobacco: Never Assessed Comments Unknown Sex and Gender Information Value Date Recorded Sex Assigned at Not on file 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
--- OUTSIDE RECORDS SUMMARY | 2025-02-26 11:12 | XMS_ITS | Encounter Summary ---
Author Organization [facility] Address [address] [place] [address] Care Team Providers Care Repairer Typewriter Name Role Phone Bandar Zaman MD Primary Care Provider [phone] Encounter Details Date Type Department Care Team (Latest Contact Info) Description 04/08/2003 Outpatient Historical [facility] [address] [address] Jeffry Conteh MD [address] [place] [phone] THYROTOX NOS W CRISIS (Primary Dx) Social History Tobacco Use Types Packs/Day Years Used Date Smoking Tobacco: Never Assessed Comments Unknown Sex and Gender Information Value Date Recorded Sex Assigned at Not on file 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
--- OUTSIDE RECORDS SUMMARY | 2025-02-26 11:12 | XMS_ITS | Encounter Summary ---
Author Organization [facility] Address [address] [place] [address] Care Team Providers Care Store Host Name Role Phone Bandar Zaman MD Primary Care Provider [phone] Encounter Details Date Type Department Care Team (Latest Contact Info) Description 08/25/2005 Outpatient Historical [facility] [address] [phone] Jeffry Conteh MD [address] [place] [phone] Other and Unspecified Hyperlipidemia (Primary Dx) Social History Tobacco Use Types Packs/Day Years Used Date Smoking Tobacco: Never Assessed Comments Unknown Sex and Gender Information Value Date Recorded Sex Assigned at Not on file 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
--- OUTSIDE RECORDS SUMMARY | 2025-02-26 11:12 | XMS_ITS | Encounter Summary ---
Author Organization [facility] Address [address] [place] [address] Care Team Providers Care Pin Drafting Machine Operator Name Role Phone Bandar Zaman MD Primary Care Provider [phone] Encounter Details Date Type Department Care Team (Latest Contact Info) Description 08/30/2005 Outpatient Historical [facility] [address], [place] [phone] Jeffry Conteh MD [address] [place] [phone] Other and Unspecified Hyperlipidemia (Primary Dx) Social History Tobacco Use Types Packs/Day Years Used Date Smoking Tobacco: Never Assessed Comments Unknown Sex and Gender Information Value Date Recorded Sex Assigned at Not on file 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
--- OUTSIDE RECORDS SUMMARY | 2025-02-26 11:12 | XMS_ITS | Encounter Summary ---
Author Organization [facility] Address [address] [place] [address] Care Team Providers Care Cooky Packer Name Role Phone Bandar Zaman MD Primary Care Provider [phone] Encounter Details Date Type Department Care Team (Latest Contact Info) Description 08/24/2004 Outpatient Historical [facility] [address], [place] [phone] Jeffry Conteh MD [address] [place] [phone] HYPERLIPIDEMIA NEC/NOS (Primary Dx) Social History Tobacco Use Types Packs/Day Years Used Date Smoking Tobacco: Never Assessed Comments Unknown Sex and Gender Information Value Date Recorded Sex Assigned at Not on file 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
--- OUTSIDE RECORDS SUMMARY | 2025-02-26 11:12 | XMS_ITS | Encounter Summary ---
Author Organization [facility] Address [address] [place] [address] Care Team Providers Care Bonding And Composite Fabricator Name Role Phone Bandar Zaman MD Primary Care Provider [phone] Encounter Details Date Type Department Care Team (Latest Contact Info) Description 04/08/2003 Outpatient Historical [facility] [address], [place] [phone] Jeffry Conteh MD [address] [place] [phone] HYPOTHYROIDISM NOS (Primary Dx); VACCINE FOR SINGLE BACT DIS OTHER Social History Tobacco Use Types Packs/Day Years Used Date Smoking Tobacco: Never Assessed Comments Unknown Sex and Gender Information Value Date Recorded Sex Assigned at Not on file 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
--- OUTSIDE RECORDS SUMMARY | 2025-02-26 11:12 | XMS_ITS | Encounter Summary ---
Author Organization [facility] Address [address] [place] [address] Care Team Providers Care Supervisor Inspection Room Name Role Phone Bandar Zaman MD Primary Care Provider [phone] Encounter Details Date Type Department Care Team (Latest Contact Info) Description 10/01/2003 Outpatient Historical [facility] [address] [phone] Jeffry Conteh MD [address] [place] [phone] HYPERLIPIDEMIA NEC/NOS (Primary Dx) Social History Tobacco Use Types Packs/Day Years Used Date Smoking Tobacco: Never Assessed Comments Unknown Sex and Gender Information Value Date Recorded Sex Assigned at Not on file 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
--- OUTSIDE RECORDS SUMMARY | 2025-02-26 11:12 | XMS_ITS | Encounter Summary ---
Author Organization [facility] Address [address] [place] [address] Care Team Providers Care Patrol Inspector Name Role Phone Bandar Zaman MD Primary Care Provider [phone] Encounter Details Date Type Department Care Team (Latest Contact Info) Description 04/27/2005 Outpatient Historical [facility] Neal Barry [address] 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
--- OUTSIDE RECORDS SUMMARY | 2025-02-26 11:12 | XMS_ITS | Encounter Summary ---
Author Organization [facility] Address [address] [place] [address] Care Team Providers Care Device Test Engineer Name Role Phone Bandar Zaman MD Primary Care Provider [phone] Encounter Details Date Type Department Care Team (Latest Contact Info) Description 06/13/[address] 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
--- OUTSIDE RECORDS SUMMARY | 2025-02-26 11:12 | XMS_ITS | Encounter Summary ---
Author Organization [facility] Address [address] [place] [address] Care Team Providers Care Electronics Instructor Name Role Phone Bandar Zaman MD Primary Care Provider [phone] Encounter Details Date Type Department Care Team (Late st Contact Info) Description 11/10/2008 Ancillary Orders [facility] [address], [place] [phone] Jeffry Conteh MD [address] [place] [address] Screening Mammogram Social History Tobacco Use Types Packs/Day Years Used Date Smoking Tobacco: Never Assessed Comments No Sex and Gender Information Value Date Recorded Sex Assigned at Not on file 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
--- OUTSIDE RECORDS SUMMARY | 2025-02-26 11:12 | XMS_ITS | Encounter Summary ---
Author Organization [facility] Address [address] [place] [address] Care Team Providers Care Vault Service Mechanic Name Role Phone Bandar Zaman MD Primary Care Provider [phone] Encounter Details Date Type Department Care Team (Latest Contact Info) Description 04/27/2006 Outpatient [facility] Urgent Care- [facility] [address] [address] Aj Hager MD [address] [place] [address] Nausea with Vomiting (Primary Dx) Social History Tobacco Use Types Packs/Day Years Used Date Smoking Tobacco: Never Assessed Comments Unknown Sex and Gender Information Value Date Recorded Sex Assigned at Not on file 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
--- OUTSIDE RECORDS SUMMARY | 2025-02-26 11:12 | XMS_ITS | Encounter Summary ---
Author Organization [facility] Address [address] [place] [address] Care Team Providers Care Bowling Floor Desk Clerk Name Role Phone Bandar Zaman MD Primary Care Provider [phone] Encounter Details Date Type Department Care Team (Latest Contact Info) Description 04/16/2003 Outpatient Historical [facility] Juan Miguel De Jesus Comerío [address] 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
--- OUTSIDE RECORDS SUMMARY | 2025-02-26 11:12 | XMS_ITS | Encounter Summary ---
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 USE MEDICATN Social History Tobacco Use Types Packs/Day Years Used Date Smoking Tobacco: Never Assessed Comments Unknown Sex and Gender Information Value Date Recorded Sex Assigned at Not on file 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
--- OUTSIDE RECORDS SUMMARY | 2025-02-26 11:12 | XMS_ITS | Encounter Summary ---
Author Organization [facility] Address [address] [place] [address] Care Team Providers Care Sql Engineer Name Role Phone Bandar Zaman MD Primary Care Provider [phone] Encounter Details Date Type Department Care Team (Late st Contact Info) Description 09/21/2009 Ancillary Orders [facility] Cardiac Yarn Texturing Machine Operator [address] 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 INDICATION: Angina. PROCEDURE NOTE: The patient was brought into the Cardiac Yarn Texturing Machine Operator and prepped and draped in the usual sterile manner and the right groin was anesthetized with 1% Xylocaine. A 7 Namibian arterial sheath was inserted via modified Seldinger technique and than an XB 3.5 guide was used to engage the left main artery. Angiomax was initiated per cardiac protocol and a BMW wire was used to cross the left anterior descending lesion. Then the lesion was predilated with a Voyager 2.5 x 12 at up to 12 atmospheres and then this was stented with the Xience 3.0 x 15 at 12 atmospheres. The stent was post dilated with a Quantum Trumbull 3.0 x 8 at up to 14 atmospheres and a final angiography revealed TUYET 3 flow, less than 10% residual, and no edge dissection. Overall an excellent angiographic result. COMPLICATIONS: None immediate. DIAGNOSES: 1. Severe stenosis of the left anterior descending. 2. Successful catheter-based intervention and drug-eluting stent to the left anterior descending. PLAN: Plavix will be resumed at 75 mg daily along with aspirin 325 mg daily and the patient s home medications will be resumed as well. tsb/ / D [id number] V [id number] Procedure Note Jaun Mccullough MD - 09/30/2009 TYPE OF PROCEDURE: Successful catheter-based intervention anddrug-eluting stent to the proximal left anterior descending. INDICATION: Angina. PROCEDURE NOTE: The patient was brought into the Cardiac Yarn Texturing Machine Operator andprepped and draped in the usual sterile manner and the right groin wasanesthetized with 1% Xylocaine. A 7 Namibian arterial sheath was insertedvia modified Seldinger technique and than an XB 3.5 guide was used toengage the left main artery. Angiomax was initiated per cardiac protocoland a BMW wire was used to cross the left anterior descending lesion. Thenthe lesion was predilated with a Voyager 2.5 x 12 at up to 12 atmospheresand then this was stented with the Xience 3.0 x 15 at 12 atmospheres. Thestent was post dilated with a Quantum Trumbull 3.0 x 8 at up to 14atmospheres and a final angiography revealed TUYET 3 flow, less than 10%residual, and no edge dissection. Overall an excellent angiographicresult. COMPLICATIONS: None immediate. DIAGNOSES: 1. Severe stenosis of the left anterior descending. 2. Successful catheter-based intervention and drug-eluting stent to theleft anterior descending. PLAN: Plavix will be resumed at 75 mg daily along with aspirin 325 mgdaily and the patient s home medications will be resumed as well. tsb/ / D [id number] V [id number] us Jaun Mccullough MD FLUOROSCOPY ORDERABLES Final Res ult [facility] documented in this encounter Visit Diagnoses Diagnosis CAD (coronary artery disease) Coronary atherosclerosis of unspecified type of vessel, chemehuevi or graft NH (myocardial infarction) (CMS/HCC) Acute myocardial infarction, unspecified site, episode of care unspecified CAD (coronary artery disease) Coronary atherosclerosis of unspecified type of vessel, chemehuevi or graft NH (myocardial infarction) (CMS/HCC) Acute myocardial infarction, unspecified site, episode of care unspecified Coronary atherosclerosis of unspecified type of vessel, chemehuevi or graft documented in this encounter Care Teams Sql Engineer Relationship Specialty Start Date End Date Bandar Zaman MD [address] [facility] [address] [place] [address] PCP - General Internal Medicine 05/03/16 documented as of this encounter
--- OUTSIDE RECORDS SUMMARY | 2025-02-26 11:12 | XMS_ITS | Encounter Summary ---
Author Organization [facility] Address [address] [place] [address] Care Team Providers Care Supervisor Lathing Name Role Phone Bandar Zaman MD Primary Care Provider [phone] Encounter Details Date Type Department Care Team (Latest Contact Info) Description 09/21/2005 Outpatient Historical [facility] Dermatology- [facility] [address] [place] [phone] Josef Christianson MD NO ADDRESS ON FILE Other Dyschromia (Primary Dx); Actinic Keratosis Social History Tobacco Use Types Packs/Day Years Used Date Smoking Tobacco: Never Assessed Comments Unknown Sex and Gender Information Value Date Recorded Sex Assigned at Not on file 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
--- OUTSIDE RECORDS SUMMARY | 2025-02-26 11:12 | XMS_ITS | Encounter Summary ---
Author Organization [facility] Address [address] [place] [address] Care Team Providers Care Head Transfer Clerk Name Role Phone Bandar Zaman MD Primary Care Provider [phone] Encounter Details Date Type Department Care Team (Latest Contact Info) Description 01/04/2004 Outpatient Historical [facility] [address], [place] [phone] Jeffry Conteh MD [address] [place] [phone] HYPERLIPIDEMIA NEC/NOS (Primary Dx) Social History Tobacco Use Types Packs/Day Years Used Date Smoking Tobacco: Never Assessed Comments Unknown Sex and Gender Information Value Date Recorded Sex Assigned at Not on file 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
--- OUTSIDE RECORDS SUMMARY | 2025-02-26 11:12 | XMS_ITS | Encounter Summary ---
Author Organization [facility] Address [address] [place] [address] Care Team Providers Care Refrigeration Supervisor Name Role Phone Bandar Zaman MD Primary Care Provider Encounter Details Date Type Department Care Team (Latest Contact Info) Description 04/03/2006 Outpatient Historical [facility] [address] [phone] Jeffry Conteh MD [address] [place] [phone] Vaccine for influenza (Primary Dx) Social History Tobacco Use Types Packs/Day Years Used Date Smoking Tobacco: Never Assessed Comments Unknown Sex and Gender Information Value Date Recorded Sex Assigned at Not on file Legal Sex Female 6:08 AM L D RN Gender Identity Not on file Sexual Orientation Not on file documented as of this encounter Plan of Treatment Not on file documented as of this encounter Visit Diagnoses Diagnosis Vaccine for influenza- Primary Need for prophylactic vaccination and inoculation against influenza documented in this encounter Care Teams Refrigeration Supervisor Relationship Specialty Start Date End Date Bandar Zaamn MD [address] [phone] PCP - General Internal Medicine 05/03/16 documented as of this encounter
--- OUTSIDE RECORDS SUMMARY | 2025-02-26 11:12 | XMS_ITS | Encounter Summary ---
Author Organization [facility] Address [address] [place] [address] Care Team Providers Care Ultimate Hoops Referee Name Role Phone Bandar Zaman MD Primary Care Provider Encounter Details Date Type Department Care Team (Latest Contact Info) Description 04/12/1999 Outpatient Historical [facility] [address], [place] [phone] Sammie Doe MD [address] [place] [address] Dysuria (Primary Dx) Social History Tobacco Use Types Packs/Day Years Used Date Smoking Tobacco: Never Assessed Comments Unknown Sex and Gender Information Value Date Recorded Sex Assigned at Not on file 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
--- OUTSIDE RECORDS SUMMARY | 2025-02-26 11:12 | XMS_ITS | Encounter Summary ---
Author Organization [facility] Address [address] [place] [address] Care Team Providers Care Salary Manager Name Role Phone Bandar Zaman MD Primary Care Provider Encounter Details Date Type Department Care Team (Latest Contact Info) Description 06/29/2003 Outpatient Historical [facility] [address], [place] [phone] Jeffry Conteh MD [address] [place] [phone] DERMATITIS NOS (Primary Dx) Social History Tobacco Use Types Packs/Day Years Used Date Smoking Tobacco: Never Assessed Comments Unknown Sex and Gender Information Value Date Recorded Sex Assigned at Not on file 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
--- OUTSIDE RECORDS SUMMARY | 2025-02-26 11:12 | XMS_ITS | Encounter Summary ---
Author Organization [facility] Address [address] [place] [address] Care Team Providers Care Timber Deadener Name Role Phone Bandar Zaman MD Primary Care Provider [phone] Encounter Details Date Type Department Care Team (Latest Contact Info) Description 01/27/1999 Outpatient Historical [facility] Medicine [place] [address], [place] [phone] Jadon Perdomo MD [address] [place] [address] Pure hypercholesterolem (Primary Dx); Elevated blood pressure reading without diagnosis of hypertension Social History Tobacco Use Types Packs/Day Years Used Date Smoking Tobacco: Never Assessed Comments Unknown Sex and Gender Information Value Date Recorded Sex Assigned at Not on file 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
--- OUTSIDE RECORDS SUMMARY | 2025-02-26 11:12 | XMS_ITS | Encounter Summary ---
Author Organization [facility] Address [address] [place] [address] Care Team Providers Care Nail Maker Name Role Phone Bandar Zaman MD Primary Care Provider Encounter Details Date Type Department Care Team (Late st Contact Info) Description 09/13/2007 Outpatient [facility] Breast [facility] [address] 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
--- OUTSIDE RECORDS SUMMARY | 2025-02-26 11:12 | XMS_ITS | Encounter Summary ---
Author Organization [facility] Address [address] [place] [address] Care Team Providers Care Spud Driller Name Role Phone Bandar Zaman MD Primary Care Provider [phone] Encounter Details Date Type Department Care Team (Late st Contact Info) Description 12/23/2008 Ancillary Orders [facility] [address] [phone] Jeffry Conteh MD [address] [place] [phone] Screening Mammogram Social History Tobacco Use Types Packs/Day Years Used Date Smoking Tobacco: Never Assessed Comments No Sex and Gender Information Value Date Recorded Sex Assigned at Not on file 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 Findings: Bilateral CC and MLO views were obtained. This examination was reviewed with the aid of a computer-aided detection system(CAD). The breast tissue density is average. No significant new findings since the prior mammogram(s). Procedure Note Adina Savage MD - 12/24/2008 Bilateral Mammogram Reason for Exam: Screening Comparison: Comparison is made with the prior exam(s) dated 04.30.06. Findings: Bilateral CC and MLO views were obtained. This examination was reviewed with the aid of a computer-aided detectionsystem(CAD). The breast tissue density is average. No significant new findings since the prior mammogram(s). us Jeffry Conteh MD MAMMO ORDERABLES Final Resul t documented in this encounter Visit Diagnoses Diagnosis Screening mammogram Other screening mammogram Screening mammogram Other screening mammogram documented in this encounter Care Teams Spud Driller Relationship Specialty Start Date End Date Bandar Zaman MD [address] [facility] [address] [place] [phone] PCP - General Internal Medicine 05/03/16 documented as of this encounter
--- OUTSIDE RECORDS SUMMARY | 2025-02-26 11:12 | XMS_ITS | Encounter Summary ---
Author Organization [facility] Address [address] [place] [address] Care Team Providers Care Machine Setter Automatic Name Role Phone Bandar Zaman MD Primary Care Provider [phone] Encounter Details Date Type Department Care Team (Latest Contact Info) Description 09/24/2006 Outpatient [facility] Dermatology- [place] [address] [place] [address] Josef Christianson MD NO ADDRESS ON FILE Actinic Keratosis (Primary Dx); Other Dyschromia Social History Tobacco Use Types Packs/Day Years Used Date Smoking Tobacco: Never Assessed Comments Unknown Sex and Gender Information Value Date Recorded Sex Assigned at Not on file 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
--- OUTSIDE RECORDS SUMMARY | 2025-02-26 11:12 | XMS_ITS | Encounter Summary ---
Author Organization [facility] Address [address] [place] [address] Care Team Providers Care Application Services Manager Name Role Phone Bandar Zaman MD Primary Care Provider [phone] Encounter Details Date Type Department Care Team (Late st Contact Info) Description 04/11/2000 Outpatient Historical [facility] Int [facility] [address] [place] [address] Bandar Zaman MD [address] [place] [address] Routine medical exam (Primary Dx) Social History Tobacco Use Types Packs/Day Years Used Date Smoking Tobacco: Never Assessed Comments Unknown Sex and Gender Information Value Date Recorded Sex Assigned at Not on file Legal Sex Female 6:08 AM LEGAL SUPPORT SPECIALIST Gender Identity Not on file Sexual Orientation Not on file documented as of this encounter Plan of Treatment Not on file documented as of this encounter Visit Diagnoses Diagnosis Routine medical exam- Primary Routine general medical examination at a health care facility documented in this encounter Care Teams Application Services Manager Relationship Specialty Start Date End Date Bandar Zaman MD [address] [place] [address] PCP - General Internal Medicine 05/03/16 documented as of this encounter
--- OUTSIDE RECORDS SUMMARY | 2025-02-26 11:12 | XMS_ITS | Encounter Summary ---
Author Organization [facility] Address [address] [place] [address] Care Team Providers Care Orthotic Technician Name Role Phone Bandar Zaman MD Primary Care Provider [phone] Encounter Details Date Type Department Care Team (Latest Contact Info) Description 03/25/2003 Outpatient Historical [facility] [address], [place] [address] Jeffry Conteh MD [address] [place] [phone] HYPERLIPIDEMIA NEC/NOS (Primary Dx); Vaccine for influenza Social History Tobacco Use Types Packs/Day Years Used Date Smoking Tobacco: Never Assessed Comments Unknown Sex and Gender Information Value Date Recorded Sex Assigned at Not on file 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
--- OUTSIDE RECORDS SUMMARY | 2025-02-26 11:12 | XMS_ITS | Encounter Summary ---
Author Organization [facility] Address [address] [place] [address] Care Team Providers Care Technical Marketing Consultant Name Role Phone Bandar Zaman MD Primary Care Provider [phone] Encounter Details Date Type Department Care Team (Latest Contact Info) Description 04/08/2004 Outpatient Historical [facility] [address] [address] Jeffry Conteh MD [address] [place] [address] HYPERLIPIDEMIA NEC/NOS (Primary Dx) Social History Tobacco Use Types Packs/Day Years Used Date Smoking Tobacco: Never Assessed Comments Unknown Sex and Gender Information Value Date Recorded Sex Assigned at Not on file 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
--- OUTSIDE RECORDS SUMMARY | 2025-02-26 11:12 | XMS_ITS | Encounter Summary ---
Author Organization [employer] [facility] Address [address] [place] [address] Care Team Providers Care Senior Lead Java Developer Name Role Phone Bandar Zaman MD Primary Care Provider [phone] Reason for Referral * Outpatient Services (Routine) - Closed Specialty Diagnoses / Procedures Referred By Suleman krishnamurthy Referred To Contact Oncology Diagnoses Visit for screening mammogram Procedures MAMMO DIGITAL SCREEN BILAT MOBILE Cristine Brewer FNP [address] [place] [phone] Phone: tel: fax: [facility] [address] [address] Phone: tel: Referral ID Status Reason Start Date Expiration Date Visits Re quested Visits Authorized [id number] Closed 12/09/2015 01/08/2017 1 1 Encounter Details Date Type Department Care Team (Latest Contact Info) Description 12/09/2015 Ancillary Orders [facility] [place] [address] [address] Cristine Brewer FNP [address] [place] [phone] Visit for screening mammogram (Primary Dx) Social History Tobacco Use Types Packs/Day Years Used Date Smoking Tobacco: Never Smokeless Tobacco: Never Alcohol Use Standard Drinks/Week Comments No 0 (1 standard drink = 0.6 oz pur e alcohol) Comments No Sex and Gender Information Value Date Recorded Sex Assigned at Not on file 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 Sex Female 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 Gender Identity Not on file Sexual Orientation Not on file Occupation Industry Job Start Date Job End Date Not on file Not on file Not on file Not on file documented as of this encounter Plan of Treatment Not on file documented as of this encounter Results * MAMMO DIGITAL SCREEN BILAT MOBILE (05/09/2016 1:09 PM FREIGHT AIR BRAKE FITTER) Anatomical Region Laterality Modality Breast Bilateral Mammography Narrative 05/11/2016 12:37 PM FREIGHT AIR BRAKE FITTER Bilateral Mammogram Reason for Exam: Screening Comparison: Compared to: 11/05/2014 MAMMO DIGITAL SCREEN BILAT MOBILE, 05/22/2013 MAMMO DIGITAL SCREEN BILAT MOBILE, 10/09/2011 MAMMO DIGITAL SCREEN BILAT MOBILE , 05/02/2010 MAMMO DIGITAL SCREEN BILAT, and 12/23/2008 MAMMO DIGITAL SCREEN BILAT Findings: Bilateral CC and MLO views were obtained. This examination was reviewed with the aid of a computer-aided detection system(CAD). BREAST COMPOSITION: Scattered areas of fibroglandular density. The overall fibroglandular pattern is stable. No suspicious abnormality is noted. No significant new findings since the prior mammogram(s). Cristine Brewer CORRECTIONAL SECURITY OFFICER MAMMO ORDERABLES Final Result documented in this encounter Visit Diagnoses Diagnosis Visit for screening mammogram- Primary Other screening mammogram documented in this encounter Care Teams Senior Lead Java Developer Relationship Specialty Start Date End Date Bandar Zaman MD [address] [facility] [address] [place] [address] PCP - General Internal Medicine 05/03/16 documented as of this encounter
--- OUTSIDE RECORDS SUMMARY | 2025-02-26 11:12 | XMS_ITS | Encounter Summary ---
Author Organization [facility] Address [address] [place] [address] Care Team Providers Care Director For Beauty School Name Role Phone Bandar Zaman MD Primary Care Provider [phone] Encounter Details Date Type Department Care Team (Latest Contact Info) Description 07/07/2004 Outpatient Historical [facility] [address], [place] [phone] Jeffry Conteh MD [address] [place] [phone] HYPERLIPIDEMIA NEC/NOS (Primary Dx) Social History Tobacco Use Types Packs/Day Years Used Date Smoking Tobacco: Never Assessed Comments Unknown Sex and Gender Information Value Date Recorded Sex Assigned at Not on file 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
--- OUTSIDE RECORDS SUMMARY | 2025-02-26 11:12 | XMS_ITS | Encounter Summary ---
Author Organization [facility] Address [address] [place] [address] Care Team Providers Care Director Dance Name Role Phone Bandar Zaman MD Primary Care Provider Encounter Details Date Type Department Care Team (Latest Contact Info) Description 04/06/2005 Outpatient Historical [facility] [address] [phone] Jeffry Conteh MD [address] [place] [phone] Vaccine for influenza (Primary Dx) Social History Tobacco Use Types Packs/Day Years Used Date Smoking Tobacco: Never Assessed Comments Unknown Sex and Gender Information Value Date Recorded Sex Assigned at Not on file 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
--- OUTSIDE RECORDS SUMMARY | 2025-02-26 11:12 | XMS_ITS | Encounter Summary ---
Author Organization [facility] Address [address] [place] [address] Care Team Providers Care Heel Slugger Name Role Phone Bandar Zaman MD Primary Care Provider [phone] Encounter Details Date Type Department Care Team (Latest Contact Info) Description 04/30/2006 Outpatient Historical [facility] [address] 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
--- OUTSIDE RECORDS SUMMARY | 2025-02-26 11:12 | XMS_ITS | Encounter Summary ---
Author Organization [employer] Address [address] [place] [address] Care Team Providers Care Trading Assistant Name Role Phone aBndar Zaman MD Primary Care Provider [phone] Reason for Referral * Outpatient Services (Routine) - Closed Specialty Diagnoses / Procedures Referred By Suleman krishnamurthy Referred To Contact Diagnoses Other screening mammogram Procedures MAMMO DIGITAL SCREEN BILAT MOBILE Jeffry Conteh MD Phone: tel: fax: Referral ID Status Reason Start Date Expiration Date Visits Re quested Visits Authorized [id number] Closed 09/07/2014 10/08/2015 1 1 Encounter Details Date Type Department Care Team (Latest Contact Info) Description 09/07/2014 Ancillary Orders [facility] [address] [address] Jeffry Conteh MD [address] [place] [address] Other screening mammogram (Primary Dx) Social History Tobacco Use Types Packs/Day Years Used Date Smoking Tobacco: Never Smokeless Tobacco: Never Alcohol Use Standard Drinks/Week Comments No 0 (1 standard drink = 0.6 oz pur e alcohol) Comments No Sex and Gender Information Value Date Recorded Sex Assigned at Not on file 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 Gender Identity Not on file Sexual Orientation Not on file Occupation Industry Job Start Date Job End Date Not on file Not on file Not on file Not on file documented as of this encounter Plan of Treatment Not on file documented as of this encounter Results * MAMMO DIGITAL SCREEN BILAT MOBILE (11/05/2014 1:09 PM CDT) Anatomical Region Laterality Modality Breast Bilateral Mammography Narrative 11/06/2014 10:34 AM CDT Bilateral Mammogram Reason for Exam: Screening Comparison: Compared to: 05/22/2013 MAMMO DIGITAL SCREEN BILAT MOBILE, 10/09/2011 MAMMO DIGITAL SCREEN BILAT MOBILE , 05/02/2010 MAMMO DIGITAL SCREEN BILAT, 12/23/2008 MAMMO DIGITAL SCREEN BILAT Findings: Bilateral CC and MLO views were obtained. This examination was reviewed with the aid of a computer-aided detection system(CAD). The breast tissue density is average. No significant new findings since the prior mammogram(s). us Jeffry Conteh MD MAMMO ORDERABLES Final Resul t documented in this encounter Visit Diagnoses Diagnosis Other screening mammogram- Primary Other screening mammogram documented in this encounter Care Teams Trading Assistant Relationship Specialty Start Date End Date Bandar Zaman MD [address] [facility] [address] [place] [phone] PCP - General Internal Medicine 05/03/16 documented as of this encounter
--- OUTSIDE RECORDS SUMMARY | 2025-02-26 11:12 | XMS_ITS | Encounter Summary ---
Author Organization [facility] Address [address] [place] [address] Care Team Providers Care Benzene Washer Operator Name Role Phone Bandar Zaman MD Primary Care Provider [phone] Encounter Details Date Type Department Care Team (Latest Contact Info) Description 09/12/2005 Outpatient Historical [facility] 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
--- OUTSIDE RECORDS SUMMARY | 2025-02-26 11:12 | XMS_ITS | Encounter Summary ---
Author Organization [facility] Address [address] [place] [address] Care Team Providers Care Lab Pack Chemist Name Role Phone Bandar Zaman MD Primary Care Provider Encounter Details Date Type Department Care Team (Latest Contact Info) Description 07/01/2003 Outpatient Historical [facility] [address], [place] [phone] Jeffry Conteh MD [address] [place] [address] HYPERLIPIDEMIA NEC/NOS (Primary Dx); AFTERCARE BEEHIVE KILN CHARCOAL BURNER USE MEDICATN Social History Tobacco Use Types Packs/Day Years Used Date Smoking Tobacco: Never Assessed Comments Unknown Sex and Gender Information Value Date Recorded Sex Assigned at Not on file Legal Sex Female 6: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
--- OUTSIDE RECORDS SUMMARY | 2025-02-26 11:12 | XMS_ITS | Encounter Summary ---
Author Organization [facility] Address [address] [place] [address] Care Team Providers Care Activity Specialist Name Role Phone Bandar Zaman MD Primary Care Provider Encounter Details Date Type Department Care Team (Latest Contact Info) Description 03/24/1999 Outpatient Historical [facility] [address] [place] [address] Bandar Zaman MD [address] [place] [address] Pure hypercholesterolem (Primary Dx) Social History Tobacco Use Types Packs/Day Years Used Date Smoking Tobacco: Never Assessed Comments Unknown Sex and Gender Information Value Date Recorded Sex Assigned at Not on file 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
--- OUTSIDE RECORDS SUMMARY | 2025-02-26 11:12 | XMS_ITS | Encounter Summary ---
Author Organization [facility] Address [address] [place] [address] Care Team Providers Care Ophthalmic Technician Apprentice Name Role Phone Bandar Zaman MD Primary Care Provider [phone] Encounter Details Date Type Department Care Team (Latest Contact Info) Description 04/19/2004 Outpatient Historical [facility] [place] [address] 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
--- OUTSIDE RECORDS SUMMARY | 2025-02-26 11:12 | XMS_ITS | Encounter Summary ---
Author Organization [facility] Address [address] [place] [address] Care Team Providers Care Director Non Profit Name Role Phone Bandar Zaman MD Primary Care Provider [phone] Encounter Details Date Type Department Care Team (Late st Contact Info) Description 10/04/2007 Outpatient Historical [facility] [address] 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
--- OUTSIDE RECORDS SUMMARY | 2025-02-26 11:12 | XMS_ITS | Encounter Summary ---
Author Organization [facility] Address [address] [place] [address] Care Team Providers Care Jammer Hooker Name Role Phone Bandar Zaman MD Primary Care Provider Encounter Details Date Type Department Care Team (Latest Contact Info) Description 03/25/2003 Outpatient Historical [facility] [address], [place] [phone] Jeffry Conteh MD [address] [place] [phone] SCREENING MAL NEOP-CERVIX (Primary Dx) Social History Tobacco Use Types Packs/Day Years Used Date Smoking Tobacco: Never Assessed Comments Unknown Sex and Gender Information Value Date Recorded Sex Assigned at Not on file 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
--- OUTSIDE RECORDS SUMMARY | 2025-02-26 11:12 | XMS_ITS | Encounter Summary ---
Author Organization [facility] Address [address] [place] [address] Care Team Providers Care Bobbin Doffer Name Role Phone Bandar Zaman MD Primary Care Provider Encounter Details Date Type Department Care Team (Latest Contact Info) Description 04/27/2005 Outpatient Historical [facility] [place] [address] 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
--- OUTSIDE RECORDS SUMMARY | 2025-02-26 11:12 | XMS_ITS | Encounter Summary ---
Author Organization [facility] Address [address] [place] [address] Care Team Providers Care Claims Processor Name Role Phone Bandar Zaman MD Primary Care Provider [phone] Encounter Details Date Type Department Care Team (Latest Contact Info) Description 03/08/2000 Outpatient Historical [facility] [address] 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
--- OUTSIDE RECORDS SUMMARY | 2025-02-26 11:12 | XMS_ITS | Encounter Summary ---
Author Organization [facility] Address [address] [place] [address] Care Team Providers Care Custom Tailor Name Role Phone Bandar Zaman MD Primary Care Provider [phone] Encounter Details Date Type Department Care Team (Latest Contact Info) Description 03/23/2004 Outpatient Historical [facility] [address], [place] [phone] Jeffry Conteh MD [address] [place] [phone] Vaccine for influenza (Primary Dx) Social History Tobacco Use Types Packs/Day Years Used Date Smoking Tobacco: Never Assessed Comments Unknown Sex and Gender Information Value Date Recorded Sex Assigned at Not on file 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
--- OUTSIDE RECORDS SUMMARY | 2025-02-26 11:12 | XMS_ITS | Encounter Summary ---
Author Organization [facility] Address [address] [place] [address] Care Team Providers Care Vp Name Role Phone Bandar Zaman MD Primary Care Provider [phone] Reason for Referral * Outpatient Services (Routine) - Closed Specialty Diagnoses / Procedures Referred By Suleman krishnamurthy Referred To Contact Diagnoses Other screening mammogram Procedures MAMMO DIGITAL SCREEN BILAT Jeffry Conteh MD [address] [place] [address] Phone: tel: fax: Referral ID Status Reason Start Date Expiration Date Visits Re quested Visits Authorized [id number] Closed 01/28/2010 07/27/2010 1 1 Encounter Details Date Type Department Care Team (Late st Contact Info) Description 01/28/2010 Ancillary Orders [facility] [address] [address] Jeffry Conteh MD [address] [place] [address] Other Screening Mammogram Social History Tobacco Use Types Packs/Day Years Used Date Smoking Tobacco: Never Alcohol Use Standard Drinks/Week Comments No 0 (1 standard drink = 0.6 oz pur e alcohol) Comments No Sex and Gender Information Value Date Recorded Sex Assigned at Not on file 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 This examination was reviewed with the aid of a computer-aided detection system(CAD). The breast tissue density is average. No significant new findings since the prior mammogram(s). Procedure Note Brenton Lott MD - 05/03/2010 Bilateral Mammogram Reason for Exam: Screening Comparison: Comparison is made with the prior exam(s) dated 12.23.08 Findings: Bilateral CC and MLO views were obtained. This examination was reviewed with the aid of a computer-aided detectionsystem(CAD). The breast tissue density is average. No significant new findings since the prior mammogram(s). us Jeffry Conteh MD MAMMO ORDERABLES Final Resul t documented in this encounter Visit Diagnoses Diagnosis Other screening mammogram Other screening mammogram documented in this encounter Care Teams Vp Relationship Specialty Start Date End Date Bandar Zaman MD [address] [place] [phone] PCP - General Internal Medicine 05/03/16 documented as of this encounter
--- OUTSIDE RECORDS SUMMARY | 2025-02-26 11:12 | XMS_ITS | Encounter Summary ---
Author Organization [facility] Address [address] [place] [address] Care Team Providers Care School Cafeteria Cook Name Role Phone Bandar Zaman MD Primary Care Provider Encounter Details Date Type Department Care Team (Latest Contact Info) Description 05/12/2003 Outpatient Historical [facility] [place] [address] [place] [phone] Josef Christianson MD NO ADDRESS ON FILE ACTINIC KERATOSIS (Primary Dx); SEBACEOUS GLAND DIS NEC Social History Tobacco Use Types Packs/Day Years Used Date Smoking Tobacco: Never Assessed Comments Unknown Sex and Gender Information Value Date Recorded Sex Assigned at Not on file 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
--- OUTSIDE RECORDS SUMMARY | 2025-02-26 11:12 | XMS_ITS | Encounter Summary ---
Author Organization [facility] Address [address] [place] [address] Care Team Providers Care Technical Adjuster Name Role Phone Bandar Zaman MD Primary Care Provider [phone] Encounter Details Date Type Department Care Team (Latest Contact Info) Description 04/19/2004 Outpatient Historical [facility] [place] [address] 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
--- OUTSIDE RECORDS SUMMARY | 2025-02-26 11:12 | XMS_ITS | Encounter Summary ---
Author Organization [facility] Address [address] [place] [address] Care Team Providers Care Document Reviewer Name Role Phone Bandar Zaman MD Primary Care Provider [phone] Encounter Details Date Type Department Care Team (Latest Contact Info) Description 04/30/2006 Outpatient Historical [facility] [place] [address] 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
--- OUTSIDE RECORDS SUMMARY | 2025-02-26 11:12 | XMS_ITS | Encounter Summary ---
Author Organization [facility] Address [address] [place] [address] Care Team Providers Care Railroad Crane Operator Name Role Phone Bandar Zaman MD Primary Care Provider [phone] Encounter Details Date Type Department Care Team (Latest Contact Info) Description 04/16/2003 Outpatient Historical [facility] [place] [address] 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
[2025-02-26 11:23] VITALS: BP 168/95; PULSE 91; TEMP 36.6; O2SAT 96; BMI 19.2
--- NOTE | 2025-02-26 11:30 | XR_ITS ---
WS: [id number] XR lumbar spine 2-3V* [id number] REASON FOR EXAM: Trauma FINDINGS: Significantly decreased bone density. Moderate rotatory levoscoliosis of the lumbar spine. Biconcave compression deformities T12-L5. Most severe in the mid lumbar spine. CT scan has been ordered for further evaluation. XR/XR lumbar spine 2-3V* [id number] IMPRESSION: Multiple thoracic and lumbar compression deformities of unknown chronicity.
--- NOTE | 2025-02-26 11:30 | XR_ITS ---
WS: [id number] XR sacrum coccyx min 2V [id number] REASON FOR EXAM: Trauma FINDINGS: Severe decrease in bone density. No sacral or coccygeal fracture is identified. Pubic rami and iliac bones intact as are the the hips and proximal femurs. Femurs. XR/XR sacrum coccyx min 2V [id number] IMPRESSION: No acute fracture or dislocation.
--- NOTE | 2025-02-26 12:00 | W.ED.FALL ---
HPI - Fall General: Chief Complaint: Fall Stated Complaint: fall Time Seen by Provider: 02/26/25 11:30 History of Present Illness: 89-year-old female presents emergency room after a accidental fall. She went to sit down in a chair she missed the chair and essentially landed directly on her buttocks. She is complaining of mid and upper back pain. She has had problems with compression fractures in the past. She did not strike her head did not lose consciousness denies any other injury Associated symptoms-after fall: Denies abdominal pain, chest pain or neck pain Related Data Home Medications ?Medication ?Instructions ?Recorded ?Confirmed apixaban 2.5 mg tablet (Eliquis) 2.5 mg PO BID 11/25/22 02/26/25 aspirin 81 mg tablet,delayed 81 mg PO DAILY 11/25/22 02/26/25 release (Adult Low Dose Aspirin) acetaminophen 500 mg tablet 1,000 mg PO Q6H PRN Fever Or Pain 02/26/25 02/26/25 (Tylenol Extra Strength) furosemide 40 mg tablet 40 mg PO DAILY 02/26/25 02/26/25 metoprolol tartrate 50 mg tablet 50 mg PO DAILY 02/26/25 02/26/25 potassium chloride 10 mEq 10 meq PO DAILY 02/26/25 02/26/25 tablet,extended release(part/cryst) rosuvastatin 20 mg tablet 20 mg PO BEDTIME 02/26/25 02/26/25 Previous Rx's ?Medication ?Instructions ?Recorded hydrocodone 5 mg-acetaminophen 325 1 tab PO Q6H PRN pain #15 tabs 02/26/25 mg tablet Allergies Allergy/AdvReac Type Severity Reaction Status Date / Time atorvastatin (From Lipitor) Allergy Unknown Verified 02/26/25 11:29 Review of Systems Const: Denies: fever(s) or chills Card: Denies: chest pain Resp: Denies: dyspnea GI: Denies: abdominal pain : Denies: dysuria, urinary frequency or urinary urgency Musc: Reports: back pain; Denies: neck pain Skin/Breast: Denies: rash PFS ED PFSH: Medical History (Updated 02/26/25 @ 14:19 by Ras Silva DO) Afib CHF (congestive heart failure) Physical Exam Const: COMMON NORMALS: no acute distress GENERAL APPEARANCE: cooperative and comfortable ORIENTATION/CONSCIOUSNESS: Yes awake, Yes oriented to person, Yes oriented to place and Yes oriented to time HENMT: COMMON NORMALS: normocephalic, atraumatic and hearing grossly normal bilaterally HEAD & SCALP: normocephalic and atraumatic Resp: COMMON NORMALS: normal respiratory effort, No retractions, No use of accessory muscles and clear to auscultation bilaterally AUSCULTATION: clear to auscultation bilaterally Cardio: COMMON NORMALS: regular rate, regular rhythm and No murmurs present (Cardio) RATE: regular rate RHYTHM: regular rhythm GI: COMMON NORMALS: Soft to palpation and No hepatosplenomegaly present AUSCULTATION: Yes normoactive bowel sounds PALPATION: Yes Soft to palpation, No Tenderness to palpation present (GI), No Guarding due to palpation present (GI) and Yes No hepatosplenomegaly present Extremity: COMMON NORMALS: normal to inspection, capillary refill normal, no clubbing, cyanosis or edema, no calf tenderness and no pedal edema Neuro: SENSORIUM/ORIENTATION: Yes oriented to person, Yes oriented to place and Yes oriented to time Skin: COMMON NORMALS: no rashes or lesions noted GENERAL SKIN EXAM: no rashes or lesions noted Course Vital Signs: Vital signs: Vital Signs Temperature 97.9 F 02/26/25 11:23 Pulse Rate 75 02/26/25 13:29 Respiratory Rate 14 02/26/25 12:36 Blood Pressure 130/80 02/26/25 13:29 Pulse Oximetry 93 02/26/25 13:29 Oxygen Delivery Me thod Room Air 02/26/25 11:23 MDM - Fall Medical Decision Making T12 vertebral compression fracture which is acute there is some retropulsion but no cord compression. Discussed options with the patient offered observation patient prefers to go home will discharge home with pain medications referral to Dr. Delcdi for evaluation for possible kyphoplasty Medical Records I reviewed the patient's medical records. Lab Data I reviewed the patient's lab results. Radiology Impressions Lumbar Spine X-Ray 02/26/25 11:30 IMPRESSION: Multiple thoracic and lumbar compression deformities of unknown chronicity. Sacrum and Coccyx X-Ray 02/26/25 11:30 IMPRESSION: No acute fracture or dislocation. Lumbar Spine CT 02/26/25 12:20 IMPRESSION: 1. Rotary scoliosis and severe osteopenia. 2. Partially visualized T12 vertebral body with acute fracture by 50% and retropulsion by 5.5 mm. 3. Additional osteoporotic compression fractures from L1-L4. These are age-indeterminate fractures. 4. L4 retrolisthesis by 3 mm. 5. Moderate RIGHT foraminal stenosis at L1-2 due to RIGHT foraminal disc osteophyte complex. 6. Mild RIGHT subarticular recess and RIGHT foraminal stenosis at L2-3. 7. L3-4: Moderate to severe central with bilateral moderate subarticular recess and foraminal stenosis, greater on the RIGHT. 8. Partially visualized LEFT pleural effusion. Thoracic Spine CT 02/26/25 12:20 IMPRESSION: 1. Acute T12 50% compression fracture with retropulsion. Mild encroachment upon the spinal canal. No high-grade stenosis. 2. Age-indeterminate T11 fracture by 30%. No fracture line evident. 3. Small layering bilateral pleural effusions. 4. Marked cardiomegaly with severe coronary artery calcifications. All radiology interpretation(s) finalized by discharge Discharge Plan Discharge Patient Disposition: Home Clinical Impression: Compression fx, thoracic spine Condition: Stable Prescriptions: New hydrocodone-acetaminophen 5-325 mg tablet 1 tab PO Q6H PRN (Reason: pain) Qty: 15 0RF No Action Eliquis 2.5 mg tablet 2.5 mg PO BID aspirin [Adult Low Dose Aspirin] 81 mg tablet,delayed release (DR/EC) 81 mg PO DAILY furosemide 40 mg tablet 40 mg PO DAILY acetaminophen [Tylenol Extra Strength] 500 mg Tablet 1,000 mg PO Q6H PRN (Reason: Fever Or Pain) metoprolol tartrate 50 mg tablet 50 mg PO DAILY rosuvastatin 20 mg tablet 20 mg PO BEDTIME potassium chloride 10 mEq tablet,ER particles/crystals 10 meq PO DAILY Discharge Orders: Discharge ED (Routine); Ordered 02/26/25 Ordered By: Ras Silva Referrals: Bandar Zaman MD [Primary Care Provider, Internal Medicine] Discharge Diet: Usual diet Discharge Activity: Increase activity as tolerated Patient Instructions: Vertebral Compression Fracture (ED), Opioid Safety, Pain Management, Patient Portal & Matt Instructions Activity Restrictions/Additional Instructions: Thank you for choosing [facility] for your healthcare needs today. It is very important that you follow up as instructed or that you return to the Emergency Department should you have concerns or if your condition changes or worsens in any way. Emergency department visits are focused on emergent conditions, in some cases you may require further evaluation on an outpatient basis. You were seen in the emergency room after a fall. X-rays and imaging shows you have a thoracic compression fracture at T12. Will discharge you home with a brace and have you follow-up with Dr. Delcid as an outpatient use pain medication as needed. (Please note that included in your discharge packet is information concerning opioid safety and pain management. This information is given to all patients were discharged from the ER regardless of their discharge diagnosis or the medicines they usually take or are prescribed.) Print Language: Kyrgyz Coding Level of Care Code ED Precinct Police Captain for Roque Blankenship
--- NOTE | 2025-02-26 12:20 | CT_ITS ---
WS: [id number] CT LUMBAR SPINE, noncontrast. HISTORY: Trauma TECHNIQUE: Contiguous 2.0 mm axial imaging are performed. Sagittal and coronal reformats are submitted and reviewed. All CT scans at [facility] use at least one of these dose optimization techniques: automated exposure control; mA and/or kV adjustment per patient size (includes targeted exams where dose is matched to clinical indication); or iterative reconstruction. IV contrast: None DLP: 674.13 mGy.cm COMPARISON: No similar studies. Bones are osteopenic. Rotary scoliosis lumbar spine. Partially visualized T12 vertebral body with at least 50% compression fracture and retrolisthesis of the posterior superior endplate by 5.5 mm. This does appear to be an acute fracture. 10% compression of fractures involving L1 and L2 without retropulsion. L3 compression fracture by 50% without retropulsion. L4: 30% compression fracture with 3 mm retropulsion posterior superior endplate. L5, no fracture. L1-2: Diffuse annular disc bulging with osteophytic ridging. RIGHT foraminal disc osteophyte complex. Moderate RIGHT foraminal stenosis. L2-3: Asymmetric disc bulging to the RIGHT with mild RIGHT foraminal stenosis. Mild subarticular recess encroachment by disc. L3-4: Large broad-based RIGHT foraminal and extraforaminal disc protrusion extending into the RIGHT subarticular recess and RIGHT foramen. Marked facet and ligamentum flavum hypertrophy. Moderate to severe central with bilateral at least moderate subarticular recess and foraminal stenosis. L4-5: Diffuse disc bulging with a shallow LEFT foraminal disc protrusion. Marked facet joint arthritis. No significant stenosis. L5-S1: Facet joint arthropathy. No significant stenosis. Partially visualized LEFT pleural effusion. Mild bilateral renal atrophy. Heavy calcification in the aorta and mesenteric arteries. No sacral fracture identified. CT/CT lumbar spine wo con* [id number] IMPRESSION: 1. Rotary scoliosis and severe osteopenia. 2. Partially visualized T12 vertebral body with acute fracture by 50% and retr opulsion by 5.5 mm. 3. Additional osteoporotic compression fractures from L1-L4. These are age-ind eterminate fractures. 4. L4 retrolisthesis by 3 mm. 5. Moderate RIGHT foraminal stenosis at L1-2 due to RIGHT foraminal disc osteo phyte complex. 6. Mild RIGHT subarticular recess and RIGHT foraminal stenosis at L2-3. 7. L3-4: Moderate to severe central with bilateral moderate subarticular reces s and foraminal stenosis, greater on the RIGHT. 8. Partially visualized LEFT pleural effusion.
--- NOTE | 2025-02-26 12:20 | CT_ITS ---
WS: [id number] CT THORACIC SPINE HISTORY: Trauma TECHNIQUE: Contiguous 2.0 mm axial images are reviewed to thoracic spine. Images are reformatted in sagittal and coronal planes. All CT scans at [facility] use at least one of these dose optimization techniques: automated exposure control; mA and/or kV adjustment per patient size (includes targeted exams where dose is matched to clinical indication); or iterative reconstruction. DLP: 674.13 mGy.cm COMPARISON: None available. Increase in thoracic scoliosis and curvature. Osteopenia. Reidentified is the T12 acute appearing Mild anterior wedging of T11 with 3 mm retropulsion of the posterior superior endplate. No transverse process fractures. No spinous process fracture. Facet joints are narrowed. No subluxation of the facet joints. Visualized ribs are negative. Small bilateral layering pleural effusions. No pneumothorax. Marked cardiac enlargement with dense coronary artery calcifications. CT/CT thoracic spin wo con* [id number] IMPRESSION: 1. Acute T12 50% compression fracture with retropulsion. Mild encroachment upo n the spinal canal. No high-grade stenosis. 2. Age-indeterminate T11 fracture by 30%. No fracture line evident. 3. Small layering bilateral pleural effusions. 4. Marked cardiomegaly with severe coronary artery calcifications.
[2025-02-26 12:36] VITALS: RESP 14; O2SAT 93
[2025-02-26] MEDS: ondansetron 2 mg/ML SDV 2 mL 4 MG IVP (12:36)
[2025-02-26] MEDS: morphine 4 mg/mL SDV 1 mL 2 MG IVP (12:36)
[2025-02-26 13:29] VITALS: BP 130/80; PULSE 75; O2SAT 93
[2025-02-26 15:20] VITALS: BP 140/100; PULSE 78; O2SAT 98
--- NOTE | 2025-02-27 06:57 | DCPLANNER ---
messaged ortho for er f/u
== END 2025-02-26 15:52 | disposition home or self-care (01) ==
PROVIDERS: Emergency Provider Family Medicine; PCP Internal Medicine
DX: S22.080A Wedge compression fracture of T11-T12 vertebra, initial encounter for closed fracture (principal); S22.089A Unspecified fracture of T11-T12 vertebra, initial encounter for closed fracture; Z79.01 Long term (current) use of anticoagulants; Z79.82 Long term (current) use of aspirin; I50.9 Heart failure, unspecified; W19.XXXA Unspecified fall, initial encounter
CPT/HCPCS: 72100; 72128; 72131; 72220; 96374; 96375; 99285; J1885; J2270; J2405

== ENCOUNTER 2025-03-01 15:06 | Emergency (ER) | payer MEDICARE, SELFPAY ==
[2025-03-01 15:09] VITALS: BP 172/108; PULSE 78; RESP 18; TEMP 36.8; O2SAT 93
--- OUTSIDE RECORDS SUMMARY | 2025-03-01 15:13 | XMS_ITS | Encounter Summary ---
Author Organization [facility] Address [address] [place] [address] Care Team Providers Care Operations Intern Name Role Phone Bandar Zaman MD Primary Care Provider [phone] Encounter Details Date Type Department Care Team (Latest Contact Info) Description 03/08/2000 Outpatient Historical [facility] [address] 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
--- OUTSIDE RECORDS SUMMARY | 2025-03-01 15:13 | XMS_ITS | Encounter Summary ---
Author Organization [facility] Address [address] [place] [address] Care Team Providers Care Water Tender Name Role Phone Bandar Zaman MD Primary Care Provider Encounter Details Date Type Department Care Team (Latest Contact Info) Description 12/16/1998 Outpatient Historical [facility] [address] [place] [address] Bandar Zaman MD [address] [place] [address] Routine medical exam (Primary Dx); Pure hypercholesterolem; Elevated blood pressure reading without diagnosis of hypertension Social History Tobacco Use Types Packs/Day Years Used Date Smoking Tobacco: Never Assessed Comments Unknown Sex and Gender Information Value Date Recorded Sex Assigned at Not on file 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 Gender Identity Not on file Sexual Orientation Not on file documented as of this encounter Plan of Treatment Not on file documented as of this encounter Visit Diagnoses Diagnosis Routine medical exam- Primary Routine general medical examination at a health care facility Pure hypercholesterolem Pure hypercholesterolemia Elevated blood pressure reading without diagnosis of hypertension documented in this encounter Care Teams Water Tender Relationship Specialty Start Date End Date Bandar Zaman MD [address] [place] [address] PCP - General Internal Medicine 05/03/16 documented as of this encounter
--- OUTSIDE RECORDS SUMMARY | 2025-03-01 15:13 | XMS_ITS | Encounter Summary ---
Author Organization [facility] Address [address] [place] [address] Care Team Providers Care Practice Business Asst Name Role Phone Bandar Zaman MD Primary Care Provider Encounter Details Date Type Department Care Team (Latest Contact Info) Description 08/17/1999 Outpatient Historical [facility] [address], [place] [address] Sammie Doe MD [address] [place] [phone] Acute bronchitis (Primary Dx) Social History Tobacco Use Types Packs/Day Years Used Date Smoking Tobacco: Never Assessed Comments Unknown Sex and Gender Information Value Date Recorded Sex Assigned at Not on file 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
--- OUTSIDE RECORDS SUMMARY | 2025-03-01 15:13 | XMS_ITS | Encounter Summary ---
Author Organization [facility] Address [address] [place] [address] Care Team Providers Care Preservative Filler Machine Operator Name Role Phone Bandar Zaman MD Primary Care Provider [phone] Encounter Details Date Type Department Care Team (Latest Contact Info) Description 04/30/2006 Outpatient Historical [facility] [place] [address] [place] [address] Adina Savage MD NO ADDRESS ON FILE Other Screening Mammogram (Primary Dx) Social History Tobacco Use Types Packs/Day Years Used Date Smoking Tobacco: Never Assessed Comments Unknown Sex and Gender Information Value Date Recorded Sex Assigned at Not on file Legal Sex Female 6:08 AM RUBBER DOWN Gender Identity Not on file Sexual Orientation Not on file documented as of this encounter Plan of Treatment Not on file documented as of this encounter Visit Diagnoses Diagnosis Other screening mammogram- Primary documented in this encounter Care Teams Preservative Filler Machine Operator Relationship Specialty Start Date End Date Bandar Zaman MD [address] [phone] PCP - General Internal Medicine 05/03/16 documented as of this encounter
--- OUTSIDE RECORDS SUMMARY | 2025-03-01 15:13 | XMS_ITS | Encounter Summary ---
Author Organization [facility] Address [address] [place] [address] Care Team Providers Care Investigator Welfare Name Role Phone Bandar Zaman MD Primary Care Provider [phone] Encounter Details Date Type Department Care Team (Late st Contact Info) Description 04/11/2000 Outpatient Historical [facility] Int [facility] [address] [place] [address] Bandar Zaman MD [address] [place] [address] Routine medical exam (Primary Dx) Social History Tobacco Use Types Packs/Day Years Used Date Smoking Tobacco: Never Assessed Comments Unknown Sex and Gender Information Value Date Recorded Sex Assigned at Not on file 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
--- OUTSIDE RECORDS SUMMARY | 2025-03-01 15:13 | XMS_ITS | Encounter Summary ---
Author Organization [facility] Address [address] [place] [address] Care Team Providers Care Leather Goods Sales Representative Name Role Phone Bandar Zaman MD Primary Care Provider [phone] Encounter Details Date Type Department Care Team (Latest Contact Info) Description 04/16/2003 Outpatient Historical [facility] Juan Miguel De Jesus Tama [address] 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
--- OUTSIDE RECORDS SUMMARY | 2025-03-01 15:13 | XMS_ITS | Encounter Summary ---
Author Organization [facility] Address [address] [place] [address] Care Team Providers Care Lead Nitrate Processor Name Role Phone Bandar Zaman MD Primary Care Provider [phone] Encounter Details Date Type Department Care Team (Latest Contact Info) Description 01/27/1999 Outpatient Historical [facility] Medicine [place] [address], [place] [phone] Jadon Perdomo MD [address] [place] [address] Pure hypercholesterolem (Primary Dx); Elevated blood pressure reading without diagnosis of hypertension Social History Tobacco Use Types Packs/Day Years Used Date Smoking Tobacco: Never Assessed Comments Unknown Sex and Gender Information Value Date Recorded Sex Assigned at Not on file 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 Sex Female 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
--- OUTSIDE RECORDS SUMMARY | 2025-03-01 15:13 | XMS_ITS | Encounter Summary ---
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 Social History Tobacco Use Types Packs/Day Years Used Date Smoking Tobacco: Never Assessed Comments Unknown Sex and Gender Information Value Date Recorded Sex Assigned at Not on file 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
--- OUTSIDE RECORDS SUMMARY | 2025-03-01 15:13 | XMS_ITS | Encounter Summary ---
Author Organization [facility] Address [address] [place] [address] Care Team Providers Care Supervisor Lending Activities Name Role Phone Bandar Zaman MD Primary Care Provider [phone] Encounter Details Date Type Department Care Team (Latest Contact Info) Description 12/10/1997 Outpatient [facility] [address] [place] [address] Bandar Zaman MD [address] [place] [address] Other and unspecified hyperlipidemia (Primary Dx); Routine medical exam; Screening for malignant neoplasm of the cervix Social History Tobacco Use Types Packs/Day Years Used Date Smoking Tobacco: Never Assessed Comments Unknown Sex and Gender Information Value Date Recorded Sex Assigned at Not on file 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 Gender Identity Not on file Sexual Orientation Not on file documented as of this encounter Plan of Treatment Not on file documented as of this encounter Visit Diagnoses Diagnosis Other and unspecified hyperlipidemia- Primary Routine medical exam Routine general medical examination at a health care facility Screening for malignant neoplasm of the cervix documented in this encounter Care Teams Supervisor Lending Activities Relationship Specialty Start Date End Date Bandar Zaman MD [address] [place] [address] PCP - General Internal Medicine 05/03/16 documented as of this encounter
--- OUTSIDE RECORDS SUMMARY | 2025-03-01 15:13 | XMS_ITS | Encounter Summary ---
Author Organization [facility] Address [address] [place] [address] Care Team Providers Care Rim Buster Name Role Phone Bandar Zaman MD Primary Care Provider [phone] Encounter Details Date Type Department Care Team (Latest Contact Info) Description 08/24/2004 Outpatient Historical [facility] [address] [phone] Jeffry Conteh MD [address] [place] [address] HYPERLIPIDEMIA NEC/NOS (Primary Dx) Social History Tobacco Use Types Packs/Day Years Used Date Smoking Tobacco: Never Assessed Comments Unknown Sex and Gender Information Value Date Recorded Sex Assigned at Not on file 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
--- OUTSIDE RECORDS SUMMARY | 2025-03-01 15:13 | XMS_ITS | Encounter Summary ---
Author Organization [facility] Address [address] [place] [address] Care Team Providers Care Chauffeur Airport Limousine Name Role Phone Bandar Zaman MD Primary Care Provider [phone] Encounter Details Date Type Department Care Team (Latest Contact Info) Description 08/13/2000 Outpatient Historical [facility] [place] [address] [place] [address] Josef Christianson MD NO ADDRESS ON FILE Actinic keratosis (Primary Dx); Benign [place]ville skin trunk Social History Tobacco Use Types Packs/Day Years Used Date Smoking Tobacco: Never Assessed Comments Unknown Sex and Gender Information Value Date Recorded Sex Assigned at Not on file 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
--- OUTSIDE RECORDS SUMMARY | 2025-03-01 15:13 | XMS_ITS | Encounter Summary ---
Author Organization [employer] [facility] Address [address] [place] [address] Care Team Providers Care Regulated Program Manager Name Role Phone Bandar Zaman MD Primary Care Provider [phone] Reason for Referral * Outpatient Services (Routine) - Closed Specialty Diagnoses / Procedures Referred By Suleman krishnamurthy Referred To Contact Diagnoses Other screening mammogram Procedures MAMMO DIGITAL SCREEN BILAT MOBILE Jeffry Conteh MD [address] [place] [address] Phone: tel: fax: Referral ID Status Reason Start Date Expiration Date Visits Re quested Visits Authorized [id number] Closed 10/02/2011 10/01/2012 1 1 Encounter Details Date Type Department Care Team (Latest Contact Info) Description 10/02/2011 Ancillary Orders [facility] [place] [address] [address] Jeffry Conteh MD [address] [place] [address] Other screening mammogram Social History Tobacco Use Types Packs/Day Years Used Date Smoking Tobacco: Never Smokeless Tobacco: Never Alcohol Use Standard Drinks/Week Comments No 0 (1 standard drink = 0.6 oz pur e alcohol) Comments No Sex and Gender Information Value Date Recorded Sex Assigned at Not on file 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
--- OUTSIDE RECORDS SUMMARY | 2025-03-01 15:13 | XMS_ITS | Encounter Summary ---
Author Organization [facility] Address [address] [place] [address] Care Team Providers Care Workday Director Name Role Phone Bandar Zaman MD Primary Care Provider [phone] Encounter Details Date Type Department Care Team (Latest Contact Info) Description 10/29/1997 Outpatient Historical [facility] [place] [address] [place] [address] Josef Christianson MD NO ADDRESS ON FILE Benign neoplasm of skin of other and unspecified parts of face (Primary Dx); Actinic keratosis Social History Tobacco Use Types Packs/Day Years Used Date Smoking Tobacco: Never Assessed Comments Unknown Sex and Gender Information Value Date Recorded Sex Assigned at Not on file 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
--- OUTSIDE RECORDS SUMMARY | 2025-03-01 15:13 | XMS_ITS | Encounter Summary ---
Author Organization [facility] Address [address] [place] [address] Care Team Providers Care Operating Systems Programmer Name Role Phone Bandar Zaman MD Primary Care Provider Encounter Details Date Type Department Care Team (Latest Contact Info) Description 06/29/2003 Outpatient Historical [facility] [address], [place] [address] Jeffry Conteh MD [address] [place] [address] DERMATITIS NOS (Primary Dx) Social History Tobacco Use Types Packs/Day Years Used Date Smoking Tobacco: Never Assessed Comments Unknown Sex and Gender Information Value Date Recorded Sex Assigned at Not on file 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
--- OUTSIDE RECORDS SUMMARY | 2025-03-01 15:13 | XMS_ITS | Encounter Summary ---
Author Organization [facility] Address [address] 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
--- OUTSIDE RECORDS SUMMARY | 2025-03-01 15:13 | XMS_ITS | Encounter Summary ---
Author Organization [facility] Address [address] [place] [address] Care Team Providers Care Supply Chain Design Manager Name Role Phone Bandar Zaman MD Primary Care Provider [phone] Encounter Details Date Type Department Care Team (Latest Contact Info) Description 10/01/2003 Outpatient Historical [facility] [address], [place] [address] Jeffry Conteh MD [address] [place] [address] HYPERLIPIDEMIA NEC/NOS (Primary Dx) Social History Tobacco Use Types Packs/Day Years Used Date Smoking Tobacco: Never Assessed Comments Unknown Sex and Gender Information Value Date Recorded Sex Assigned at Not on file Legal Sex Female 6:08 AM RN ICU Gender Identity Not on file Sexual Orientation Not on file documented as of this encounter Plan of Treatment Not on file documented as of this encounter Visit Diagnoses Diagnosis Other and unspecified hyperlipidemia- Primary documented in this encounter Care Teams Supply Chain Design Manager Relationship Specialty Start Date End Date Bandar Zaman MD [address] [facility] [address] [place] [address] PCP - General Internal Medicine 05/03/16 documented as of this encounter
--- OUTSIDE RECORDS SUMMARY | 2025-03-01 15:13 | XMS_ITS | Encounter Summary ---
Author Organization [facility] Address [address] [place] [address] Care Team Providers Care Towel Sewer Name Role Phone Bandar Zaman MD Primary Care Provider [phone] Encounter Details Date Type Department Care Team (Latest Contact Info) Description 09/23/1997 Outpatient Historical [facility] Dermatology- [facility] [place] [address] [place] [address] Josef Christianson MD NO ADDRESS ON FILE Benign neoplasm of skin of other and unspecified parts of face (Primary Dx); Actinic keratosis Social History Tobacco Use Types Packs/Day Years Used Date Smoking Tobacco: Never Assessed Comments Unknown Sex and Gender Information Value Date Recorded Sex Assigned at Not on file Legal Sex Female 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
--- OUTSIDE RECORDS SUMMARY | 2025-03-01 15:13 | XMS_ITS | Encounter Summary ---
Author Organization [facility] Address [address] [place] [address] Care Team Providers Care Central Sterile Supply Technician Name Role Phone Bandar Zaman MD Primary Care Provider [phone] Encounter Details Date Type Department Care Team (Latest Contact Info) Description 01/04/2004 Outpatient Historical [facility] [address], [place] [address] Jeffry Conteh MD [address] [place] [phone] HYPERLIPIDEMIA NEC/NOS (Primary Dx) Social History Tobacco Use Types Packs/Day Years Used Date Smoking Tobacco: Never Assessed Comments Unknown Sex and Gender Information Value Date Recorded Sex Assigned at Not on file Legal Sex Female 6:08 AM HEALTH INFORMATION PROVIDER Gender Identity Not on file Sexual Orientation Not on file documented as of this encounter Plan of Treatment Not on file documented as of this encounter Visit Diagnoses Diagnosis Other and unspecified hyperlipidemia- Primary documented in this encounter Care Teams Central Sterile Supply Technician Relationship Specialty Start Date End Date Bandar Zaman MD [address] [facility] [address] [place] [address] PCP - General Internal Medicine 05/03/16 documented as of this encounter
--- OUTSIDE RECORDS SUMMARY | 2025-03-01 15:13 | XMS_ITS | Encounter Summary ---
Author Organization [facility] Address [address] [place] [address] Care Team Providers Care Court Worker Name Role Phone Bandar Zaman MD Primary Care Provider [phone] Encounter Details Date Type Department Care Team (Latest Contact Info) Description 04/08/2004 Outpatient Historical [facility] [address] [address] Jeffry Conteh MD [address] [place] [phone] HYPERLIPIDEMIA NEC/NOS (Primary Dx) Social History Tobacco Use Types Packs/Day Years Used Date Smoking Tobacco: Never Assessed Comments Unknown Sex and Gender Information Value Date Recorded Sex Assigned at Not on file 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
--- OUTSIDE RECORDS SUMMARY | 2025-03-01 15:13 | XMS_ITS | Encounter Summary ---
Author Organization [facility] Address [address] [place] [address] Care Team Providers Care College Or University Business Manager Name Role Phone Bandar Zaman MD Primary Care Provider [phone] Encounter Details Date Type Department Care Team (Latest Contact Info) Description 04/27/2005 Outpatient Historical [facility] Breast [facility] [place] [address] [place] [address] Jeffry Conteh MD [address] [place] [phone] SCREENING MAMM-MAILG NEOPL NEC (Primary Dx) Social History Tobacco Use Types Packs/Day Years Used Date Smoking Tobacco: Never Assessed Comments Unknown Sex and Gender Information Value Date Recorded Sex Assigned at Not on file Legal Sex Female 6:08 AM RESIDENT PROGRAM SPECIALIST Gender Identity Not on file Sexual Orientation Not on file documented as of this encounter Plan of Treatment Not on file documented as of this encounter Visit Diagnoses Diagnosis Other screening mammogram- Primary documented in this encounter Care Teams College Or University Business Manager Relationship Specialty Start Date End Date Bandar Zaman MD [address] [address] PCP - General Internal Medicine 05/03/16 documented as of this encounter
--- OUTSIDE RECORDS SUMMARY | 2025-03-01 15:13 | XMS_ITS | Encounter Summary ---
Author Organization [facility] Address [address] [place] [address] Care Team Providers Care Technician Assistant Name Role Phone Bandar Zaman MD Primary Care Provider [phone] Encounter Details Date Type Department Care Team (Late st Contact Info) Description 02/19/2002 Outpatient Historical [facility] [address] [place] [address] Bandar Zaman MD [address] [place] [address] [employer] MAN[employer]ING [employer] LEADER USE MEDICATN (Primary Dx); Pure hypercholesterolem; SCREENING MAL NEOP-CERVIX Social History Tobacco Use Types Packs/Day Years Used Date Smoking Tobacco: Never Assessed Comments Unknown Sex and Gender Information Value Date Recorded Sex Assigned at Not on file 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 Sex Female 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 Gender Identity Not on file Sexual Orientation Not on file documented as of this encounter Plan of Treatment Not on file documented as of this encounter Visit Diagnoses Diagnosis Encounter for long-term (current) use of other medications- Primary Pure hypercholesterolem Pure hypercholesterolemia Screening for malignant neoplasm of the cervix documented in this encounter Care Teams Technician Assistant Relationship Specialty Start Date End Date Bandar Zaman MD [address] [facility] [address] [place] [address] PCP - General Internal Medicine 05/03/16 documented as of this encounter
--- OUTSIDE RECORDS SUMMARY | 2025-03-01 15:13 | XMS_ITS | Encounter Summary ---
Author Organization [facility] Address [address] [place] [address] Care Team Providers Care Co Founder And President Name Role Phone Bandar Zaman MD Primary Care Provider [phone] Encounter Details Date Type Department Care Team (Latest Contact Info) Description 07/07/2004 Outpatient Historical [facility] [address] [phone] Jeffry Conteh MD [address] [place] [phone] HYPERLIPIDEMIA NEC/NOS (Primary Dx) Social History Tobacco Use Types Packs/Day Years Used Date Smoking Tobacco: Never Assessed Comments Unknown Sex and Gender Information Value Date Recorded Sex Assigned at Not on file Legal Sex Female 6:08 AM BATHING SUIT MAKER Gender Identity Not on file Sexual Orientation Not on file documented as of this encounter Plan of Treatment Not on file documented as of this encounter Visit Diagnoses Diagnosis Other and unspecified hyperlipidemia- Primary documented in this encounter Care Teams Co Founder And President Relationship Specialty Start Date End Date Bandar Zaman MD [address] [facility] [address] [place] [address] PCP - General Internal Medicine 05/03/16 documented as of this encounter
--- OUTSIDE RECORDS SUMMARY | 2025-03-01 15:13 | XMS_ITS | Encounter Summary ---
Author Organization [facility] Address [address] [place] [address] Care Team Providers Care Radiation Control Health Physicist Name Role Phone Bandar Zaman MD Primary Care Provider [phone] Encounter Details Date Type Department Care Team (Latest Contact Info) Description 04/19/2004 Outpatient Historical [facility] Neal Lagrange [address] 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
--- OUTSIDE RECORDS SUMMARY | 2025-03-01 15:13 | XMS_ITS | Encounter Summary ---
Author Organization [facility] Address [address] [place] [address] Care Team Providers Care Bd Special Education Teacher Name Role Phone Bandar Zaman MD Primary Care Provider Encounter Details Date Type Department Care Team (Latest Contact Info) Description 04/08/2003 Outpatient Historical [facility] [address] [phone] Jeffry Conteh MD [address] [place] [phone] THYROTOX NOS W CRISIS (Primary Dx) Social History Tobacco Use Types Packs/Day Years Used Date Smoking Tobacco: Never Assessed Comments Unknown Sex and Gender Information Value Date Recorded Sex Assigned at Not on file Legal Sex Female 6:08 AM SPECIAL MACHINE STITCHER Gender Identity Not on file Sexual Orientation Not on file documented as of this encounter Plan of Treatment Not on file documented as of this encounter Visit Diagnoses Diagnosis Thyrotoxicosis without mention of goiter or other cause, with mention of thyrotoxic crisis or storm- Primary documented in this encounter Care Teams Bd Special Education Teacher Relationship Specialty Start Date End Date Bandar Zaman MD [address] [facility] [address] [place] [address] PCP - General Internal Medicine 05/03/16 documented as of this encounter
--- OUTSIDE RECORDS SUMMARY | 2025-03-01 15:13 | XMS_ITS | Encounter Summary ---
Author Organization [facility] Address [address] [place] [address] Care Team Providers Care Machine Engraver Name Role Phone Bandar Zaman MD Primary Care Provider [phone] Encounter Details Date Type Department Care Team (Latest Contact Info) Description 03/25/2001 Outpatient Historical [facility] Neal Kendall [address] [place] [address] Adina Savage MD NO ADDRESS ON FILE Other screening mammogram (Primary Dx) Social History Tobacco Use Types Packs/Day Years Used Date Smoking Tobacco: Never Assessed Comments Unknown Sex and Gender Information Value Date Recorded Sex Assigned at Not on file Legal Sex Female 6:08 AM PRODUCT/DEVICE TECHNOLOGIST Gender Identity Not on file Sexual Orientation Not on file documented as of this encounter Plan of Treatment Not on file documented as of this encounter Visit Diagnoses Diagnosis Other screening mammogram- Primary documented in this encounter Care Teams Machine Engraver Relationship Specialty Start Date End Date Bandar Zaman MD [address] [phone] PCP - General Internal Medicine 05/03/16 documented as of this encounter
--- OUTSIDE RECORDS SUMMARY | 2025-03-01 15:13 | XMS_ITS | Encounter Summary ---
Author Organization [facility] Address [address] [place] [address] Care Team Providers Care Baling Press Operator Name Role Phone Bandar Zaman MD Primary Care Provider [phone] Encounter Details Date Type Department Care Team (Latest Contact Info) Description 03/25/2003 Outpatient Historical [facility] [address] [phone] Jeffry Conteh MD [address] [place] [phone] SCREENING MAL NEOP-CERVIX (Primary Dx) Social History Tobacco Use Types Packs/Day Years Used Date Smoking Tobacco: Never Assessed Comments Unknown Sex and Gender Information Value Date Recorded Sex Assigned at Not on file Legal Sex Female 6: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
--- OUTSIDE RECORDS SUMMARY | 2025-03-01 15:13 | XMS_ITS | Clinical Summary ---
Author Organization [facility] Address [address] [place] [address] Care Team Providers Care Shoemaker Apprentice Name Role Phone Bandar Zaman MD Primary Care Provider [phone] Allergies Active Allergy Reactions Criticality Noted Date [...] Data STL ABSTRACTION Provider, Abstract 02/06/2025 Refill [facility] [address] [place] [address] Bandar Zaman MD Paroxysmal atrial fibrillation with rapid ventricular response (CMS/HCC) 01/28/2025 External Device Data STL ABSTRACTION Provider, Abstract 12/30/2024 External Device Data STL ABSTRACTION Provider, Abstract 12/22/2024 2:00 PM CDT Office Visit [facility] [place] [address] [place] [address] Bandar Zaman MD Routine general medical examination at a health care facility (Primary Dx); ASCVD (arteriosclerotic cardiovascular disease); Chronic diastolic congestive heart failure (CMS/HCC); Essential hypertension; Prediabetes 12/16/2024 9:00 AM CDT Procedure visit [address] [address] 12/08/2024 Refill [facility] [place] [address] [place] [address] Bandar Zaman MD 12/03/2024 Orders Only [facility] [address] [place] [address] Bandar Zaman MD Essential hypertension (Primary Dx); Hypercholesterolemia; Abnormal glucose; Encounter for routine adult health examination without abnormal findings from Last 3 Months Immunizations Immunization Administration Dates Next Due (PFIZER SANDOVAL)(12 YR UP PRIMA RY SERIES) COVID-19 VACCINE - EMERGENCY USE AUTHORIZATION, MRNA, SANDOVAL(PF) 30 MCG/0.3 ML IM SUSP 09/14/2021 (PFIZER)(12 YR UP) COVID-19 VACCINE - EMERGENCY USE AUTHORIZATION, MRNA, [id number](PF) 30 MCG/0.3 ML IM SUSP 03/03/2022,03/24/2021,08/11/2020,07/20 (PNEUMOVAX 23)(50 YRS UP) PN EUMOCOCCAL POLYSACCHARIDE (PPV23) 0.5 ML, IM 04/08/2003 (PREVNAR 13)(6 WKS UP) PNEUM OCOCCAL CONJUGATE (PCV13) 0.5 ML, IM 11/15/2016 (PREVNAR 20)(6 WKS UP) PNEUM OCOCCAL CONJUGATE VACCINE 20-VALENT (PCV20), POLYSACCHARIDE [id number] CONJUGATE, ADJUVANT 0.5 ML (PF) IM 12/21/2023 (SHINGRIX)(50 YRS UP) ZOSTER VACCINE RECOMBINANT, 0.5 ML, IM 03/31/2019 (SPIKEVAX 2024-)(12YR UP) COVID-19 VACCINE, MRNA (PF)50 MCG/0.5 ML, [...] on file Legal Sex Female 7:32 AM CONTROL SUPERVISOR Gender Identity Not on file Sexual [...] Description 10/27/2025 9:40 AM CDT Office Visit [facility] [address] [place] [address] Cherie Rodriguez FNP [address] [place] [address] 12/24/2025 1:00 PM CDT Office Visit [facility] Guillermo De Jesus [facility] [address] [place] [address] Bandar Zaman MD [address] [facility] [address] [place] [address] Health Maintenance Due Date Last Done Comments [...] 11/15/2016, 09/18/2009, Additional history exists Medicare [place] ([place]) Preventative Visit/Annual Wellness Visit Completed 12/22/2024, 12/21/2023, [...] * TSH REFLEXIVE (12/16/2024 8:35 AM CDT) Pathologist [facility] TSH 1.45 0.40 - 4.50 mIU/L [facility] Comment: FASTING:YES FASTING: YES Test Performed at: [facility] [address] [facility] [place] [address] Darren Juarez MD Blood 12/16/2024 8:35 AM CDT 12/16/2024 8:35 AM CDT us Bandar Zaman MD CHEMISTRY ORDERABLES Final Res ult [facility] [phone] [facility] [address] [facility] [place] [address] * (ABNORMAL) CBC WITH DIFFERENTIAL (12/16/2024 8:35 AM CDT) [facility] WBC 5.9 3.8 - 10.8 Thousand/u L [...] Comment: FASTING:YES FASTING: YES Test Performed at: [facility] [address] [facility] [address] Darren Juarez MD Blood 12/16/2024 8:35 AM CDT 12/16/2024 8:35 AM CDT us Bandar Zaman MD HEMATOLOGY ORDERABLES Final Re sult [facility] [phone] [address] * (ABNORMAL) HEMOGLOBIN A1C (12/16/2024 8:35 AM CDT) HEMOGLOBIN A1C 6.3(H) <5.7 % [facility] Comment: For someone without known diabetes, [...] children. ESTIMATED AVERAGE GLUCOSE (MG/DL) 134 mg/dL [facility] ESTIMATED AVERAGE GLUCOSE (MMOL/L) 7.4 mmol/L [facility] Comment: FASTING:YES FASTING: YES Test Performed at: [facility] [address] [place] [address] Darren Juarez MD Blood 12/16/2024 8:35 AM CDT 12/16/2024 8:35 AM CDT us Bandar Zaman MD CHEMISTRY ORDERABLES Final Res ult [facility] [phone] [facility] [address] [place] [address] * LIPID PANEL (12/16/2024 8:35 AM CDT) CHOLESTEROL 165 <200 mg/dL [facility] HDL 71 > OR = 50 mg/dL [facility] TRIGLYCERIDE 84 <150 mg/dL [facility] LDL CALCULATED 78 mg/dL (calc) [facility] Comment: Reference range: <100 Desirable range <100 mg/dL for primary prevention; <70 mg/dL for patients with CHD or diabetic patients with > or = 2 CHD risk factors. LDL-C is now calculated using the Samy-Jaylan calculation, which is a validated novel method providing better accuracy than the Friedewald equation in the estimation of LDL-C. Samy SS et al. CAL. 2013;310(19): 8584-8055 (http://education.DailyTicket.iNest Realty/faq/AWC377) CHOL/HDL RATIO 2.3 <5.0 (calc) [facility] NON-HDL CHOLESTEROL 94 <130 mg/dL (calc) [facility] Comment: For patients with diabetes plus 1 major ASCVD risk factor, treating to a non-HDL-C goal of <100 mg/dL (LDL-C of <70 mg/dL) is considered a therapeutic option. Test Performed at: [facility] [address] [address] Darren Juarez MD Blood 12/16/2024 8:35 AM CDT 12/16/2024 8:35 AM CDT us Bandar Zaman MD CHEMISTRY ORDERABLES Final Res ult [facility] [phone] [facility] [address] [address] * (ABNORMAL) COMPREHENSIVE METABOLIC PANEL (12/16/2024 8:35 AM CDT) GLUCOSE 105(H) 65 - 99 mg/dL [facility] Comment: Fasting reference interval For someone [...] Comment: FASTING:YES FASTING: YES Test Performed at: [facility] [address] [place] [address] Darren Juarez MD Blood 12/16/2024 8:35 AM CDT 12/16/2024 8:35 AM CDT us Bandar Zaman MD CHEMISTRY ORDERABLES Final Res ult [facility] [phone] [facility] [address] [place] [address] * XR DEXA BONE DENSITY AXIAL 1 [...] loss. isma 0955 AM - uploaded from [facility]- Narrative 12/17/2009 4:08 PM CDT DEXA Evaluation [...] loss. isma 0955 AM - uploaded from [facility]- us Sammie Doe MD DIAGNOSTIC IMAGING ORDERABLES F inal Result from Last 3 Months or Most Recently Relevant to Health Maintenance Insurance [facility] [place] Address: [address] [address] Advance Directives For more information, please contact: [phone] * Full Code (Latest Code Status on [...] Non-Invasive (i.e. BiPAP, CPAP): Yes Care Teams Shoemaker Apprentice Relationship Specialty Start Date End Date Bandar Zaman MD [address] [facility] [address] [place] [address] PCP - General Internal Medicine 05/03/16
--- OUTSIDE RECORDS SUMMARY | 2025-03-01 15:13 | XMS_ITS | Encounter Summary ---
Author Organization [facility] Address [address] [place] [address] Care Team Providers Care Sleeve Sewer Name Role Phone Bandar Zaman MD Primary Care Provider Encounter Details Date Type Department Care Team (Latest Contact Info) Description 04/11/2000 Outpatient Historical [facility] Bandar Zaman MD [address] [place] [address] Unspecified general medical examination (Primary Dx); Pure hypercholesterolem Social History Tobacco Use Types Packs/Day Years Used Date Smoking Tobacco: Never Assessed Comments Unknown Sex and Gender Information Value Date Recorded Sex Assigned at Not on file Legal Sex Female 6:08 AM SHIRT MAKER Gender Identity Not on file Sexual Orientation Not on file documented as of this encounter Plan of Treatment Not on file documented as of this encounter Visit Diagnoses Diagnosis Unspecified general medical examination- Primary Pure hypercholesterolem Pure hypercholesterolemia documented in this encounter Care Teams Sleeve Sewer Relationship Specialty Start Date End Date Bandar Zaman MD [address] [place] [address] PCP - General Internal Medicine 05/03/16 documented as of this encounter
--- OUTSIDE RECORDS SUMMARY | 2025-03-01 15:13 | XMS_ITS | Encounter Summary ---
Author Organization [facility] Address [address] [place] [address] Care Team Providers Care Train Gate Attendant Name Role Phone Bandar Zaman MD Primary Care Provider Encounter Details Date Type Department Care Team (Latest Contact Info) Description 04/06/[address] 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
--- OUTSIDE RECORDS SUMMARY | 2025-03-01 15:13 | XMS_ITS | Encounter Summary ---
Author Organization [employer] [facility] Address [address] [place] [address] Care Team Providers Care Medical Billing Assistant Name Role Phone Bandar Zaman MD Primary Care Provider [phone] Encounter Details Date Type Department Care Team [...] on file Legal Sex Female 7:32 AM PASSENGER VESSEL CHEF Gender Identity Not on file Sexual Orientation Not on file documented as of this encounter Plan of Treatment Upcoming Encounters Date Type Department Care Team (Late st Contact Info) Description 10/27/2025 9:40 AM CDT Office Visit [facility] [address] [place] [address] Cherie Rodriguez, [facility] [address] [place] [address] 12/24/2025 1:00 PM CDT Office Visit [facility] [address] [place] [address] Bandar Zaman MD [address] [place] [address] documented as of this encounter Visit Diagnoses Not on filedocumented in this encounter Care Teams Medical Billing Assistant Relationship Specialty Start Date End Date Bandar Zaman MD [address] [place] [address] PCP - General Internal Medicine 05/03/16 documented as of this encounter
--- OUTSIDE RECORDS SUMMARY | 2025-03-01 15:13 | XMS_ITS | Encounter Summary ---
Author Organization [facility] Address [address] [place] [address] Care Team Providers Care Differential Specialist Name Role Phone Bandar Zaman MD Primary Care Provider [phone] Encounter Details Date Type Department Care Team (Latest Contact Info) Description 04/16/2003 Outpatient Historical [facility] Neal Hardin [address] 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
--- OUTSIDE RECORDS SUMMARY | 2025-03-01 15:13 | XMS_ITS | Encounter Summary ---
Author Organization [facility] Address [address] [place] [address] Care Team Providers Care Tailings Worker Name Role Phone Bandar Zaman MD Primary Care Provider [phone] Encounter Details Date Type Department Care Team (Latest Contact Info) Description 08/30/2005 Outpatient Historical [facility] [address], [place] [phone] Jeffry Conteh MD [address] [place] [phone] Other and Unspecified Hyperlipidemia (Primary Dx) Social History Tobacco Use Types Packs/Day Years Used Date Smoking Tobacco: Never Assessed Comments Unknown Sex and Gender Information Value Date Recorded Sex Assigned at Not on file 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
--- OUTSIDE RECORDS SUMMARY | 2025-03-01 15:13 | XMS_ITS | Encounter Summary ---
Author Organization [employer] [facility] Address [address] [place] [address] Care Team Providers Care Family Preservation Worker Name Role Phone Bandar Zaman MD Primary Care Provider [phone] Reason for Referral * Outpatient Services (Routine) - Closed Specialty Diagnoses / Procedures Referred By Suleman krishnamurthy Referred To Contact Diagnoses Other screening mammogram Procedures MAMMO DIGITAL SCREEN BILAT MOBILE Jeffry Conteh MD Phone: tel: fax: Referral ID Status Reason Start Date Expiration Date Visits Re quested Visits Authorized [id number] Closed 09/07/2014 10/08/2015 1 1 Encounter Details Date Type Department Care Team (Latest Contact Info) Description 09/07/2014 Ancillary Orders [facility] [address] [address] Jeffry Conteh MD [address] [place] [address] Other screening mammogram (Primary Dx) Social History Tobacco Use Types Packs/Day Years Used Date Smoking Tobacco: Never Smokeless Tobacco: Never Alcohol Use Standard Drinks/Week Comments No 0 (1 standard drink = 0.6 oz pur e alcohol) Comments No Sex and Gender Information Value Date Recorded Sex Assigned at Not on file 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
--- OUTSIDE RECORDS SUMMARY | 2025-03-01 15:13 | XMS_ITS | Encounter Summary ---
Author Organization [facility] Address [address] [place] [address] Care Team Providers Care Grounds Maintenance Supervisor Name Role Phone Bandar Zaman MD Primary Care Provider [phone] Encounter Details Date Type Department Care Team (Late st Contact Info) Description 12/10/1997 Outpatient Historical [facility] Services[facility] Neal [place] [address] [place] [address] Hao Wilson MD [address] [place] [address] Unspecified general medical examination (Primary Dx) Social History Tobacco Use Types Packs/Day Years Used Date Smoking Tobacco: Never Assessed Comments Unknown Sex and Gender Information Value Date Recorded Sex Assigned at Not on file 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
--- OUTSIDE RECORDS SUMMARY | 2025-03-01 15:13 | XMS_ITS | Encounter Summary ---
Author Organization [facility] Address [address] [place] [address] Care Team Providers Care Mold Operator Name Role Phone Bandar Zaman MD Primary Care Provider [phone] Encounter Details Date Type Department Care Team (Latest Contact Info) Description 07/01/2003 Outpatient Historical [facility] [address], [place] [phone] Jeffry Conteh MD [address] [place] [address] HYPERLIPIDEMIA NEC/NOS (Primary Dx); AFTERCARE BUILDING SPECIALIST USE MEDICATN Social History Tobacco Use Types Packs/Day Years Used Date Smoking Tobacco: Never Assessed Comments Unknown Sex and Gender Information Value Date Recorded Sex Assigned at Not on file Legal Sex Female 6:08 AM 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
--- OUTSIDE RECORDS SUMMARY | 2025-03-01 15:13 | XMS_ITS | Encounter Summary ---
Author Organization [facility] Address [address] [place] [address] Care Team Providers Care Jack Of All Trades Name Role Phone Bandar Zaman MD Primary Care Provider Encounter Details Date Type Department Care Team (Latest Contact Info) Description 04/27/[address] [facility] Neal [place] [address] 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
--- OUTSIDE RECORDS SUMMARY | 2025-03-01 15:13 | XMS_ITS | Encounter Summary ---
Author Organization [facility] Address [address] [place] [address] Care Team Providers Care Handhole Machine Operator Name Role Phone Bandar Zaman MD Primary Care Provider Encounter Details Date Type Department Care Team (Latest Contact Info) Description 04/12/1999 Outpatient Historical [facility] [address] [address] Sammie Doe MD [address] [place] [address] Dysuria (Primary Dx) Social History Tobacco Use Types Packs/Day Years Used Date Smoking Tobacco: Never Assessed Comments Unknown Sex and Gender Information Value Date Recorded Sex Assigned at Not on file 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
--- OUTSIDE RECORDS SUMMARY | 2025-03-01 15:13 | XMS_ITS | Encounter Summary ---
Author Organization [facility] Address [address] [place] [address] Care Team Providers Care Higher Education Administrator Name Role Phone Bandar Zaman MD Primary Care Provider Encounter Details Date Type Department Care Team (Latest Contact Info) Description 03/24/1999 Outpatient Historical 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
--- OUTSIDE RECORDS SUMMARY | 2025-03-01 15:13 | XMS_ITS | Encounter Summary ---
Author Organization [facility] Address [address] [place] [address] Care Team Providers Care Reproducer Name Role Phone Bandar Zaman MD Primary Care Provider Encounter Details Date Type Department Care Team (Latest Contact Info) Description 03/23/2004 Outpatient Historical [facility] [address], [place] [phone] Jeffry Conteh MD [address] [place] [phone] Vaccine for influenza (Primary Dx) Social History Tobacco Use Types Packs/Day Years Used Date Smoking Tobacco: Never Assessed Comments Unknown Sex and Gender Information Value Date Recorded Sex Assigned at Not on file Legal Sex Female 6:08 AM DIGITAL SALES DIRECTOR Gender Identity Not on file Sexual Orientation Not on file documented as of this encounter Plan of Treatment Not on file documented as of this encounter Visit Diagnoses Diagnosis Vaccine for influenza- Primary Need for prophylactic vaccination and inoculation against influenza documented in this encounter Care Teams Reproducer Relationship Specialty Start Date End Date Bandar Zaman MD [address] [phone] PCP - General Internal Medicine 05/03/16 documented as of this encounter
--- OUTSIDE RECORDS SUMMARY | 2025-03-01 15:13 | XMS_ITS | Encounter Summary ---
Author Organization [facility] Address [address] [place] [address] Care Team Providers Care Biological Science Technician Name Role Phone Bandar Zaman MD Primary Care Provider [phone] Encounter Details Date Type Department Care Team (Latest Contact Info) Description 03/25/2001 Outpatient [facility] DEXA Scan Services[facility] Neal [place] [address] [place] [address] Jadon Perdomo MD [address] [place] [address] Other ovarian failure (Primary Dx); Special screening for osteoporosis Social History Tobacco Use Types Packs/Day Years Used Date Smoking Tobacco: Never Assessed Comments Unknown Sex and Gender Information Value Date Recorded Sex Assigned at Not on file 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
--- OUTSIDE RECORDS SUMMARY | 2025-03-01 15:13 | XMS_ITS | Encounter Summary ---
Author Organization [facility] Address [address] [place] [address] Care Team Providers Care Mobile Electronics Installer Name Role Phone Bandar Zaman MD Primary Care Provider [phone] Encounter Details Date Type Department Care Team (Latest Contact Info) Description 05/23/2011 Ancillary Orders [facility] Pre-Registration [place] CALL TO MAKE APPOINTMENT ONLY [address] [place] [address] Jeffry Conteh MD [address] [place] [address] Other screening mammogram Social History Tobacco Use Types Packs/Day Years Used Date Smoking Tobacco: Never Smokeless Tobacco: Never Alcohol Use Standard Drinks/Week Comments No 0 (1 standard drink = 0.6 oz pur e alcohol) Comments No Sex and Gender Information Value Date Recorded Sex Assigned at Not on file Legal Sex Female 6:08 AM OPHTHALMOLOGIST RETINA SPECIALIST Gender Identity Not on file Sexual Orientation Not on file documented as of this encounter Plan of Treatment Not on file documented as of this encounter Visit Diagnoses Diagnosis Other screening mammogram documented in this encounter Care Teams Mobile Electronics Installer Relationship Specialty Start Date End Date Bandar Zaman MD [address] [address] PCP - General Internal Medicine 05/03/16 documented as of this encounter
--- OUTSIDE RECORDS SUMMARY | 2025-03-01 15:13 | XMS_ITS | Clinical Summary ---
Author Organization [facility] Address [address] [address] Care Team Providers Care Traffic Operations Engineer Name Role Phone Bandar Zaman MD Primary Care Provider [phone] Social History Tobacco Use Types Packs/Day Years [...] patient's age to complete this topic Insurance [place] [address] Medicare Care Teams Traffic Operations Engineer Relationship Specialty Start Date End Date Bandar Zaman MD [address] [facility] [address] [place] [address] PCP - General Internal Medicine 08/03/22
--- OUTSIDE RECORDS SUMMARY | 2025-03-01 15:13 | XMS_ITS | Encounter Summary ---
Author Organization [facility] Address [address] 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
--- OUTSIDE RECORDS SUMMARY | 2025-03-01 15:13 | XMS_ITS | Encounter Summary ---
Author Organization [facility] Address [address] [place] [address] Care Team Providers Care Reservationist Name Role Phone Bandar Zaman MD Primary Care Provider [phone] Encounter Details Date Type Department Care Team (Latest Contact Info) Description 09/12/2005 Outpatient Historical [facility] Orthopedics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
--- OUTSIDE RECORDS SUMMARY | 2025-03-01 15:13 | XMS_ITS | Encounter Summary ---
Author Organization [facility] Address [address] [place] [address] Care Team Providers Care Tool Shaper Set Up Operator Name Role Phone Bandar Zaman MD Primary Care Provider [phone] Encounter Details Date Type Department Care Team (Latest Contact Info) Description 04/19/2004 Outpatient Historical [facility] Neal [place] [address] 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
--- OUTSIDE RECORDS SUMMARY | 2025-03-01 15:13 | XMS_ITS | Encounter Summary ---
Author Organization [facility] Address [address] [place] [address] Care Team Providers Care Director Of Head Start Name Role Phone Bandar Zaman MD Primary Care Provider [phone] Encounter Details Date Type Department Care Team (Latest Contact Info) Description 04/15/2002 Outpatient Historical [facility] Neal Bibb [address] [place] [address] Adina Savage MD NO ADDRESS ON FILE SCREENING MAMM-MAILG NEOPL-OTHER (Primary Dx) Social History Tobacco Use Types Packs/Day Years Used Date Smoking Tobacco: Never Assessed Comments Unknown Sex and Gender Information Value Date Recorded Sex Assigned at Not on file Legal Sex Female 6:08 AM MEDICAL SAFETY DIRECTOR Gender Identity Not on file Sexual Orientation Not on file documented as of this encounter Plan of Treatment Not on file documented as of this encounter Visit Diagnoses Diagnosis Other screening mammogram- Primary documented in this encounter Care Teams Director Of Head Start Relationship Specialty Start Date End Date Bandar Zaman MD [address] [place] [address] PCP - General Internal Medicine 05/03/16 documented as of this encounter
--- OUTSIDE RECORDS SUMMARY | 2025-03-01 15:13 | XMS_ITS | Encounter Summary ---
Author Organization [facility] Address [address] [place] [address] Care Team Providers Care Suspender Maker Name Role Phone Bandar Zaman MD Primary Care Provider [phone] Encounter Details Date Type Department Care Team (Latest Contact Info) Description 08/25/2005 Outpatient Historical [facility] [address] [address] Jeffry Conteh MD [address] [place] [address] Other and Unspecified Hyperlipidemia (Primary Dx) Social History Tobacco Use Types Packs/Day Years Used Date Smoking Tobacco: Never Assessed Comments Unknown Sex and Gender Information Value Date Recorded Sex Assigned at Not on file Legal Sex Female 6: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
--- OUTSIDE RECORDS SUMMARY | 2025-03-01 15:13 | XMS_ITS | Encounter Summary ---
Author Organization [facility] Address [address] [place] [address] Care Team Providers Care Vacuum Forming Machine Operator Name Role Phone Bandar Zaman MD Primary Care Provider [phone] Encounter Details Date Type Department Care Team (Latest Contact Info) Description 06/13/2004 Outpatient Historical [facility] Dermatology- [facility] [place] [address] [place] [address] Josef Christianson MD NO ADDRESS ON FILE SEBACEOUS GLAND DIS NEC (Primary Dx); ACTINIC KERATOSIS Social History Tobacco Use Types Packs/Day Years Used Date Smoking Tobacco: Never Assessed Comments Unknown Sex and Gender Information Value Date Recorded Sex Assigned at Not on file Legal Sex Female 6:08 AM MANAGER OF TAX Gender Identity Not on file Sexual Orientation Not on file documented as of this encounter Plan of Treatment Not on file documented as of this encounter Visit Diagnoses Diagnosis Other specified disease of sebaceous glands- Primary Actinic keratosis documented in this encounter Care Teams Vacuum Forming Machine Operator Relationship Specialty Start Date End Date Bandar Zaman MD [address] [place] [address] PCP - General Internal Medicine 05/03/16 documented as of this encounter
--- OUTSIDE RECORDS SUMMARY | 2025-03-01 15:13 | XMS_ITS | Encounter Summary ---
Author Organization [facility] Address [address] [place] [address] Care Team Providers Care Secondary Social Studies Teacher Name Role Phone Bandar Zaman MD Primary Care Provider [phone] Encounter Details Date Type Department Care Team (Latest Contact Info) Description 03/25/2003 Outpatient Historical [facility] [address], [place] [address] Jeffry Conteh MD [address] [place] [phone] HYPERLIPIDEMIA NEC/NOS (Primary Dx); Vaccine for influenza Social History Tobacco Use Types Packs/Day Years Used Date Smoking Tobacco: Never Assessed Comments Unknown Sex and Gender Information Value Date Recorded Sex Assigned at Not on file Legal Sex Female 6:08 AM RECOVERY COLLECTOR Gender Identity Not on file Sexual Orientation Not on file documented as of this encounter Plan of Treatment Not on file documented as of this encounter Visit Diagnoses Diagnosis Other and unspecified hyperlipidemia- Primary Vaccine for influenza Need for prophylactic vaccination and inoculation against influenza documented in this encounter Care Teams Secondary Social Studies Teacher Relationship Specialty Start Date End Date Bandar Zaman MD [address] [facility] [facility] [address] [place] [address] PCP - General Internal Medicine 05/03/16 documented as of this encounter
--- OUTSIDE RECORDS SUMMARY | 2025-03-01 15:13 | XMS_ITS | Encounter Summary ---
Author Organization [facility] Address [address] [place] [address] Care Team Providers Care Environmental Geologist Name Role Phone Bandar Zaman MD Primary Care Provider [phone] Encounter Details Date Type Department Care Team (Latest Contact Info) Description 05/12/2003 Outpatient [facility] Dermatology- [facility] [place] [address] [place] [address] Josef Christianson MD NO ADDRESS ON FILE ACTINIC KERATOSIS (Primary Dx); SEBACEOUS GLAND DIS NEC Social History Tobacco Use Types Packs/Day Years Used Date Smoking Tobacco: Never Assessed Comments Unknown Sex and Gender Information Value Date Recorded Sex Assigned at Not on file 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
--- OUTSIDE RECORDS SUMMARY | 2025-03-01 15:13 | XMS_ITS | Clinical Summary ---
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 [email or web address] 0955 AM - uploaded from [employer]- FST21 12/17/2009 4:08 PM CDT DEXA Evaluation of [...] loss. isma 0955 AM - uploaded from [employer]- us Sammie Doe MD DIAGNOSTIC IMAGING ORDERABLES F inal Result from Last 3 Months or Most Recently Relevant to Health Maintenance Advance Directives For more information, please contact: [phone] * Full Code (Latest Code Status on File) Date Activated Date Inactivated Comments 09/29/2009 11:26 AM 09/30/2009 12:05 PM * Full Code Date Activated Date Inactivated Comments 09/29/2009 6:52 AM 09/29/2009 11:26 AM * Full Code Date Activated Date Inactivated Comments 09/16/2009 5:53 PM 09/18/2009 3:11 PM * Full Code Date Activated Date Inactivated Comments 09/16/2009 3:32 PM 09/16/2009 5:53 PM Care Teams Shellfish Farming Supervisor Relationship Specialty Start Date End Date Bandar Zaman MD [address] [facility] [address] [place] [phone] PCP - General Internal Medicine 05/03/16
--- OUTSIDE RECORDS SUMMARY | 2025-03-01 15:13 | XMS_ITS | Encounter Summary ---
Author Organization [facility] Address [address] [place] [address] Care Team Providers Care Weed Eradicator Name Role Phone Bandar Zaman MD Primary Care Provider [phone] Encounter Details Date Type Department Care Team (Latest Contact Info) Description 05/01/2002 Outpatient Historical [facility] Dermatology- [facility] [place] [address] [place] [address] Josef Christianson MD NO ADDRESS ON FILE ACTINIC KERATOSIS (Primary Dx); SEBACEOUS GLAND DIS NEC Social History Tobacco Use Types Packs/Day Years Used Date Smoking Tobacco: Never Assessed Comments Unknown Sex and Gender Information Value Date Recorded Sex Assigned at Not on file 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
--- OUTSIDE RECORDS SUMMARY | 2025-03-01 15:13 | XMS_ITS | Encounter Summary ---
Author Organization [facility] Address [address] [place] [address] Care Team Providers Care Advertising Job Titles Name Role Phone Bandar Zaman MD Primary Care Provider Encounter Details Date Type Department Care Team (Late st Contact Info) Description 12/16/1998 Outpatient Historical [facility] [place] [address] 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
--- OUTSIDE RECORDS SUMMARY | 2025-03-01 15:13 | XMS_ITS | Encounter Summary ---
Author Organization [facility] Address [address] [place] [address] Care Team Providers Care Retail Analyst Name Role Phone Bandar Zaman MD Primary Care Provider [phone] Encounter Details Date Type Department Care Team (Latest Contact Info) Description 04/08/2003 Outpatient Historical [facility] [address], [place] [phone] Jeffry Conteh MD [address] [place] [phone] HYPOTHYROIDISM NOS (Primary Dx); VACCINE FOR SINGLE BACT DIS OTHER Social History Tobacco Use Types Packs/Day Years Used Date Smoking Tobacco: Never Assessed Comments Unknown Sex and Gender Information Value Date Recorded Sex Assigned at Not on file 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
--- OUTSIDE RECORDS SUMMARY | 2025-03-01 15:13 | XMS_ITS | Encounter Summary ---
Author Organization [facility] Address [address] [place] [address] Care Team Providers Care Physician/Allergy/Immunology Name Role Phone Bandar Zaman MD Primary Care Provider [phone] Encounter Details Date Type Department Care Team (Latest Contact Info) Description 12/17/1997 Outpatient Historical [facility] [place] [address] 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
--- OUTSIDE RECORDS SUMMARY | 2025-03-01 15:13 | XMS_ITS | Encounter Summary ---
Author Organization [facility] Address [address] [place] [address] Care Team Providers Care Greens Laborer Name Role Phone Bandar Zaman MD Primary Care Provider [phone] Encounter Details Date Type Department Care Team (Late st Contact Info) Description 04/15/2002 Outpatient Historical [facility] [place] [address] 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
--- OUTSIDE RECORDS SUMMARY | 2025-03-01 15:14 | XMS_ITS | Encounter Summary ---
Author Organization [facility] Address [address] [place] [address] Care Team Providers Care Manager Ems Name Role Phone Bandar Zaman MD Primary Care Provider [phone] Encounter Details Date Type Department Care Team (Late st Contact Info) Description 11/10/2008 Ancillary Orders [facility] [address], [place] [phone] Jeffry Conteh MD [address] [place] [phone] Screening Mammogram Social History Tobacco Use Types Packs/Day Years Used Date Smoking Tobacco: Never Assessed Comments No Sex and Gender Information Value Date Recorded Sex Assigned at Not on file 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
--- OUTSIDE RECORDS SUMMARY | 2025-03-01 15:14 | XMS_ITS | Encounter Summary ---
Author Organization [facility] Address [address] [place] [address] Care Team Providers Care Marketing Traffic Coordinator Name Role Phone Bandar Zaman MD Primary Care Provider [phone] Encounter Details Date Type Department Care Team (Late st Contact Info) Description 09/21/2009 Ancillary Orders [facility] Cardiac Field Supervisor [address] [place] [address] Jaun Mccullough MD [address] [address] CAD (Coronary Artery Disease); SD (Myocardial Infarction) (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 INDICATION: Angina. PROCEDURE NOTE: The patient was brought into the Cardiac Field Supervisor and prepped and draped in the usual sterile manner and the right groin was anesthetized with 1% Xylocaine. A 7 Moldovan arterial sheath was inserted via modified Seldinger [...] stent was post dilated with a Quantum [place] 3.0 x 8 at up to 14 [...] be resumed as well. tsb/ / D [id number] V [id number] Procedure Note Jaun Mccullough MD - 09/30/2009 TYPE OF PROCEDURE: Successful catheter-based intervention anddrug-eluting stent to the proximal left anterior descending. INDICATION: Angina. PROCEDURE NOTE: The patient was brought into the Cardiac Field Supervisor andprepped and draped in the usual sterile manner and the right groin wasanesthetized with 1% Xylocaine. A 7 Moldovan arterial sheath was insertedvia modified Seldinger technique [...] Thestent was post dilated with a Quantum [place] 3.0 x 8 at up to 14atmospheres [...] be resumed as well. tsb/ / D [id number] V [id number] us Jaun Mccullough MD FLUOROSCOPY ORDERABLES Final Res [facility] documented in this encounter Visit Diagnoses Diagnosis CAD (coronary artery disease) Coronary atherosclerosis of unspecified type of vessel, [place] or graft SD (myocardial infarction) (CMS/HCC) Acute myocardial infarction, unspecified site, episode of care unspecified CAD (coronary artery disease) Coronary atherosclerosis of unspecified type of vessel, [place] or graft SD (myocardial infarction) (CMS/HCC) Acute myocardial infarction, unspecified site, episode of care unspecified Coronary atherosclerosis of unspecified type of vessel, [place] or graft documented in this encounter Care Teams Marketing Traffic Coordinator Relationship Specialty Start Date End Date Bandar Zaman MD [address] [facility] [address] [place] [address] PCP - General Internal Medicine 05/03/16 documented as of this encounter
--- OUTSIDE RECORDS SUMMARY | 2025-03-01 15:14 | XMS_ITS | Encounter Summary ---
Author Organization [facility] Address [address] [place] [address] Care Team Providers Care Unit Nurse Name Role Phone Bandar Zaman MD Primary Care Provider [phone] Encounter Details Date Type Department Care Team (Latest Contact Info) Description 04/30/2006 Outpatient Historical [facility] Breast [facility] [place] [address] 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
--- OUTSIDE RECORDS SUMMARY | 2025-03-01 15:14 | XMS_ITS | Encounter Summary ---
Author Organization [facility] Address [address] [place] [address] Care Team Providers Care Apprentice Carpenter Name Role Phone Bandar Zaman MD Primary Care Provider [phone] Reason for Referral * Outpatient Services (Routine) - Closed Specialty Diagnoses / Procedures Referred By Suleman krishnamurthy Referred To Contact Oncology Diagnoses Visit for screening mammogram Procedures MAMMO DIGITAL SCREEN BILAT MOBILE Cristine Brewer FNP [address] [place] [address] Phone: tel: fax: Clarassance Eidson [address] [address] Phone: tel: Referral ID Status Reason Start Date Expiration Date Visits Re quested Visits Authorized [id number] Closed 12/09/2015 01/08/2017 1 1 Encounter Details Date Type Department Care Team (Latest Contact Info) Description 12/09/2015 Ancillary Orders [facility] Eidson [address] [address] Cristine Brewer FNP [address] [place] [phone] Visit for screening mammogram (Primary Dx) Social History Tobacco Use Types Packs/Day Years Used Date Smoking Tobacco: Never Smokeless Tobacco: Never Alcohol Use Standard Drinks/Week Comments No 0 (1 standard drink = 0.6 oz pur e alcohol) Comments No Sex and Gender Information Value Date Recorded Sex Assigned at Not on file Legal Sex Female 6:08 AM DIE SINKING MACHINE OPERATOR Gender Identity Not on file Sexual Orientation Not on file Occupation Industry Job Start Date Job End Date Not on file Not on file Not on file Not on file documented as of this encounter Plan of Treatment Not on file documented as of this encounter Results * MAMMO DIGITAL SCREEN BILAT MOBILE (05/09/2016 1:09 PM DIE SINKING MACHINE OPERATOR) Anatomical Region Laterality Modality Breast Bilateral Mammography Narrative 05/11/2016 12:37 PM DIE SINKING MACHINE OPERATOR Bilateral Mammogram Reason for Exam: Screening Comparison: [...] findings since the prior mammogram(s). Cristine Brewer MANUAL CONTROL AUGER PRESS OPERATOR MAMMO ORDERABLES Final Result documented in this encounter Visit Diagnoses Diagnosis Visit for screening mammogram- Primary Other screening mammogram documented in this encounter Care Teams Apprentice Carpenter Relationship Specialty Start Date End Date Bandar Zaman MD [address] [facility] [address] [place] [address] PCP - General Internal Medicine 05/03/16 documented as of this encounter
--- OUTSIDE RECORDS SUMMARY | 2025-03-01 15:14 | XMS_ITS | Encounter Summary ---
Author Organization [facility] Address [address] [place] [address] Care Team Providers Care Business Analytics Manager Name Role Phone Bandar Zaman MD Primary Care Provider Encounter Details Date Type Department Care Team (Latest Contact Info) Description 04/03/2006 Outpatient Historical [facility] [address], [place] [phone] Jeffry Conteh MD [address] [place] [phone] Vaccine for influenza (Primary Dx) Social History Tobacco Use Types Packs/Day Years Used Date Smoking Tobacco: Never Assessed Comments Unknown Sex and Gender Information Value Date Recorded Sex Assigned at Not on file 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
--- OUTSIDE RECORDS SUMMARY | 2025-03-01 15:14 | XMS_ITS | Encounter Summary ---
Author Organization [facility] Address [address] [place] [address] Care Team Providers Care Shellfish Manager Name Role Phone Bandar Zaman MD Primary Care Provider Encounter Details Date Type Department Care Team (Latest Contact Info) Description 09/24/2006 Outpatient [facility] Dermatology- [place] [address] [place] [address] Josef Christianson MD NO ADDRESS ON FILE Actinic Keratosis (Primary Dx); Other Dyschromia Social History Tobacco Use Types Packs/Day Years Used Date Smoking Tobacco: Never Assessed Comments Unknown Sex and Gender Information Value Date Recorded Sex Assigned at Not on file 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
--- OUTSIDE RECORDS SUMMARY | 2025-03-01 15:14 | XMS_ITS | Encounter Summary ---
Author Organization [facility] Address [address] [place] [address] Care Team Providers Care Editing Clerk Name Role Phone Bandar Zaman MD Primary Care Provider [phone] Encounter Details Date Type Department Care Team (Late st Contact Info) Description 12/23/2008 Ancillary Orders [facility] [address] [phone] Jeffry Conteh MD [address] [place] [phone] Screening Mammogram Social History Tobacco Use Types Packs/Day Years Used Date Smoking Tobacco: Never Assessed Comments No Sex and Gender Information Value Date Recorded Sex Assigned at Not on file 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
--- OUTSIDE RECORDS SUMMARY | 2025-03-01 15:14 | XMS_ITS | Encounter Summary ---
Author Organization [facility] Address [address] [place] [address] Care Team Providers Care Finish Specialist Name Role Phone Bandar Zaman MD Primary Care Provider [phone] Encounter Details Date Type Department Care Team (Latest Contact Info) Description 04/27/2006 Outpatient [facility] [address] [address] Aj Hager MD [address] [place] [address] Nausea with Vomiting (Primary Dx) Social History Tobacco Use Types Packs/Day Years Used Date Smoking Tobacco: Never Assessed Comments Unknown Sex and Gender Information Value Date Recorded Sex Assigned at Not on file 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
--- OUTSIDE RECORDS SUMMARY | 2025-03-01 15:14 | XMS_ITS | Encounter Summary ---
Author Organization [facility] Address [address] [place] [address] Care Team Providers Care Registry Nurse Name Role Phone Bandar Zaman MD Primary Care Provider Encounter Details Date Type Department Care Team (Late st Contact Info) Description 09/13/2007 Outpatient [facility] [address] 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
--- OUTSIDE RECORDS SUMMARY | 2025-03-01 15:14 | XMS_ITS | Encounter Summary ---
Author Organization [facility] Address [address] [place] [address] Care Team Providers Care Supervisor Research Shop Name Role Phone Bandar Zaman MD Primary Care Provider [phone] Encounter Details Date Type Department Care Team (Late st Contact Info) Description 10/04/2007 Outpatient Historical [facility] [address] [facility] [address] [place] [phone] Social History Tobacco Use Types Packs/Day Years Used Date Smoking Tobacco: Never Assessed Comments Unknown Sex and Gender Information Value Date Recorded Sex Assigned at Not on file 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
--- OUTSIDE RECORDS SUMMARY | 2025-03-01 15:14 | XMS_ITS | Encounter Summary ---
Author Organization [facility] Address [address] [place] [address] Care Team Providers Care Clinical Office Technician Name Role Phone Bandar Zaman MD Primary Care Provider [phone] Reason for Referral * Outpatient Services (Routine) - Closed Specialty Diagnoses / Procedures Referred By Suleman krishnamurthy Referred To Contact Diagnoses Other screening mammogram Procedures MAMMO DIGITAL SCREEN BILAT Jeffry Conteh MD [address] [place] [address] Phone: tel: fax: Referral ID Status Reason Start Date Expiration Date Visits Re quested Visits Authorized [id number] Closed 01/28/2010 07/27/2010 1 1 Encounter Details Date Type Department Care Team (Late st Contact Info) Description 01/28/2010 Ancillary Orders [facility] [address] [address] Jeffry Conteh MD [address] [place] [address] Other Screening Mammogram Social History Tobacco Use Types Packs/Day Years Used Date Smoking Tobacco: Never Alcohol Use Standard Drinks/Week Comments No 0 (1 standard drink = 0.6 oz pur e alcohol) Comments No Sex and Gender Information Value Date Recorded Sex Assigned at Not on file 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 Gender Identity Not on file Sexual Orientation Not on file documented as of this encounter Plan of Treatment Not on file documented as of this encounter Results * MAMMO DIGITAL SCREEN BILAT (05/02/2010 12:36 PM GRAIN DISTRIBUTOR) Anatomical Region Laterality Modality Breast Bilateral Mammography Narrative 05/03/2010 3:16 PM GRAIN DISTRIBUTOR Bilateral Mammogram Reason for Exam: Screening Comparison: [...] mammogram documented in this encounter Care Teams Clinical Office Technician Relationship Specialty Start Date End Date Bandar Zaman MD [address] [place] [phone] PCP - General Internal Medicine 05/03/16 documented as of this encounter
--- OUTSIDE RECORDS SUMMARY | 2025-03-01 15:14 | XMS_ITS | Encounter Summary ---
Author Organization [facility] Address [address] [place] [address] Care Team Providers Care Flight Crew Ordnanceman Name Role Phone Bandar Zaman MD Primary Care Provider [phone] Encounter Details Date Type Department Care Team (Latest Contact Info) Description 09/21/2005 Outpatient Historical [facility] D[facility]at[facility]- [facility] [place] [address] [place] [phone] Josef Christianson MD NO ADDRESS ON FILE Other Dyschromia (Primary Dx); Actinic Keratosis Social History Tobacco Use Types Packs/Day Years Used Date Smoking Tobacco: Never Assessed Comments Unknown Sex and Gender Information Value Date Recorded Sex Assigned at Not on file 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
--- NOTE | 2025-03-01 15:29 | XRR_ITS ---
PROCEDURE INFORMATION: Exam: XR Abdomen Exam date and time: 03/01/2025 3:40 PM Age: 89 years old Clinical indication: Abdominal pain; Prior surgery; Surgery date: 6+ months; Surgery type: Csection, cardiac stents; Additional info: Abdominal pain; Nausea; ; Diarrhea TECHNIQUE: Imaging protocol: Radiologic exam of the abdomen. Views: 2 Views. Upright and supine views. COMPARISON: CT thoracic spin wo con* [id number] 02/26/2025 12:41 PM FINDINGS: Pleural spaces: Small bilateral pleural effusions, [id number]-right, with bibasilar opacities/consolidation. Gastrointestinal tract: Normal. No bowel dilation. Intraperitoneal space: Normal. No free air. Bones/joints: Mild scoliosis of the lumbar spine convex to the left.. XR/XR acute abdomen series 30527 IMPRESSION: 1. No evidence of bowel obstruction. 2. Pleural-parenchymal opacities at the bases, [id number]-[id number]-right.
--- NOTE | 2025-03-01 15:31 | W.ED.NAVMDI ---
HPI - Nausea/Vomiting/Diarrhea General: Chief complaint: Nausea/Vomiting/Diarrhea Stated complaint: dirrera and back pain Time Seen by Provider: 03/01/25 15:16 History of Present Illness: Patient is a 89-year-old female with recent diagnosis of acute compression fracture at T12, with multiple chronic compression fractures L1-4, presented to the ED due to diarrhea, nausea, foamy vomit. She does not have any abdominal pain. She is passing gas. Abdominal surgery: section This has been occurring x 2 days. Patient is afraid it is her GI upset from recent prescription of narcotics with acute compression fracture 02/26. Associated nausea: Yes Associated symtoms: Reports nausea; Denies altered mental status, anxiety, change in vision, chest pain, headache(s) or palpitations Related Data Home Medications ?Medication ?Instructions ?Recorded ?Confirmed apixaban 2.5 mg tablet (Eliquis) 2.5 mg PO BID 11/25/22 03/01/25 aspirin 81 mg tablet,delayed 81 mg PO DAILY 11/25/22 03/01/25 release (Adult Low Dose Aspirin) acetaminophen 500 mg tablet 1,000 mg PO Q6H PRN Fever Or Pain 02/26/25 03/01/25 (Tylenol Extra Strength) furosemide 40 mg tablet 40 mg PO DAILY 02/26/25 03/01/25 metoprolol tartrate 50 mg tablet 50 mg PO BID 02/26/25 03/01/25 potassium chloride 10 mEq 10 meq PO DAILY 02/26/25 03/01/25 tablet,extended release(part/cryst) rosuvastatin 20 mg tablet 20 mg PO BEDTIME 02/26/25 03/01/25 Previous Rx's ?Medication ?Instructions ?Recorded hydrocodone 5 mg-acetaminophen 325 1 tab PO Q6H PRN pain #15 tabs 02/26/25 mg tablet ondansetron 4 mg disintegrating 4 mg PO Q8H PRN nausea and 03/01/25 tablet vomiting 4 days #14 tabs Allergies Allergy/AdvReac Type Severity Reaction Status Date / Time atorvastatin (From Lipitor) Allergy Unknown Verified 03/01/25 15:15 Review of Systems General: Reports: 10 or more systems reviewed and unremarkable except in HPI and below Const: Denies: fever(s) or chills Eyes: Denies: change in vision or blurry vision ENMT: Reports: dry mouth; Denies: throat pain or change in hearing Card: Denies: chest pain or palpitations Resp: Denies: dyspnea or non-productive cough GI: Reports: nausea, vomiting and diarrhea; Denies: abdominal pain : Denies: flank pain, difficulty voiding or urinary frequency Musc: Denies: neck pain or back pain Skin/Breast: Denies: rash or pruritus Neuro: Denies: headache(s), numbness in extremities or weakness in extremities Psych: Denies: anxiety or depression PFS ED PFSH: Medical History (Updated 03/01/25 @ 18:21 by MILKA Reese) Afib CHF (congestive heart failure) Physical Exam Const: COMMON NORMALS: no acute distress, patient oriented x3, no limitations and alert EXAM LIMITATIONS: no altered mental status HENMT: COMMON NORMALS: normocephalic and atraumatic HEAD & SCALP: normocephalic and atraumatic Eye: COMMON NORMALS: Equal, round and reactive pupils present, EOMs intact bilaterally, conjunctivae normal and no scleral icterus CONJUNCTIVA: Yes conjunctivae normal PUPIL: Yes Equal, round and reactive pupils present Neck/C-Spine: COMMON NORMALS: full ROM and no lymphadenopathy Lymph: LYMPHATIC: no lymphadenopathy noted Chest: COMMONS NORMALS: normal inspection of the chest and normal palpation of entire chest wall Resp: COMMON NORMALS: normal respiratory effort and No retractions AUSCULTATION: bronchial breath sounds (Distal, clear upper lobes) bilateral Cardio: COMMON NORMALS: regular rate and regular rhythm RATE: regular rate RHYTHM: regular rhythm : COMMON NORMALS: Yes no CVA tenderness BLADDER/KIDNEY EXAM: Yes no CVA tenderness Back/Pelvis: COMMON NORMALS: no CVA tenderness Extremity: COMMON NORMALS: normal to inspection, full ROM and capillary refill normal Neuro: COMMON NORMALS: patient oriented x3 SENSORIUM/ORIENTATION: Yes alert Psych: COMMON NORMALS: mental status grossly normal, Normal thought process present and cooperative THOUGHT PROCESS: Normal thought process present Skin: COMMON NORMALS: no rashes or lesions noted GENERAL SKIN EXAM: no rashes or lesions noted Course Vital Signs: Vital signs: Vital Signs Temperature 98.2 F 03/01/25 15:09 Pulse Rate 86 03/01/25 18:36 Respiratory Rate 18 03/01/25 15:09 Blood Pressure 135/98 03/01/25 18:36 Pulse Oximetry 92 03/01/25 18:36 MDM - Nausea/Vomiting/Diarrhea Medical Decision Making Patient is a 89-year-old female with recent compression fracture, that has had 2-3 days of diarrhea, nausea, and spitting. Patient believe this was secondary to hydrocodone given to her for compression fraction. She is awaiting follow-up with Dr. Delcid. Will obtain routine labs, give IV fluids, and if patient is able to produce a stool sample, we will further investigate. She has had total of 4 stools today. On x-ray there is bilateral pleural effusions, left greater than right. Physical examination is fairly and significant. Still awaiting after 2 hours of the reading of her acute abdominal series. Medical Records I reviewed the patient's medical records. Lab Data I reviewed the patient's lab results. 03/01/25 15:55 03/01/25 15:55 Radiology Impressions Chest/Abdomen X-ray 03/01/25 15:29 IMPRESSION: 1. No evidence of bowel obstruction. 2. Pleural-parenchymal opacities at the bases, [id number]-[id number]-[id number]-right. Laboratory Results WBC 4.31 10^3/uL (3.29-11.43) 03/01/25 15:55 RBC 4.76 10^6/uL (3.85-5.65) 03/01/25 15:55 Hgb 13.40 g/dL (11.27-16.99) 03/01/25 15:55 Hct 43.4 % (36-47) 03/01/25 15:55 MCV 91.2 fl (85-98) 03/01/25 15:55 MCH 28.2 pg (27-33) 03/01/25 15:55 MCHC 30.9 g/dL (30-55) 03/01/25 15:55 RDW 14.6 % (12.1-15.1) 03/01/25 15:55 Plt Count 202 10^3/cmm (157-399) 03/01/25 15:55 MPV 10.6 fL (7.4-10.4) H 03/01/25 15:55 Neut % (Auto) 69.6 % 03/01/25 15:55 Lymph % (Auto) 14.2 % 03/01/25 15:55 [place] % (Auto) 15.3 % 03/01/25 15:55 Eos % (Auto) 0.5 % 03/01/25 15:55 Baso % (Auto) 0.2 % 03/01/25 15:55 Neut # (Auto) 3.00 10^3/uL (1.8-7.7) 03/01/25 15:55 Lymph # (Auto) 0.6 10^3/uL (0.8-4.8) L 03/01/25 15:55 [place] # (Auto) 0.7 10^3/uL (0.2-0.9) 03/01/25 15:55 Eos # (Auto) 0.0 10^3/uL (0.0-0.8) 03/01/25 15:55 Baso # (Auto) 0.0 10^3/uL (0.0-0.1) 03/01/25 15:55 Nucleated RBC % (auto) 0 % 03/01/25 15:55 Nucleated RBCs # 0.0 /100WBC 03/01/25 15:55 Sodium 137 mmol/L (136-145) 03/01/25 15:55 Potassium 4.0 mmol/L (3.5-5.1) 03/01/25 15:55 Chloride 98 mmol/L (98-107) 03/01/25 15:55 Carbon Dioxide 26 mmol/L (22-29) 03/01/25 15:55 Anion Gap 17.0 (5-19) 03/01/25 15:55 BUN 48 mg/dL (8-23) H 03/01/25 15:55 Creatinine 1.3 mg/dL (0.5-0.9) H 03/01/25 15:55 GFR Calculation Not Reportable 03/01/25 15:55 Glucose 120 mg/dL (65-115) H 03/01/25 15:55 Calculated Osmolality 298 mOsm/kg (285-295) H 03/01/25 15:55 Calcium 8.9 mg/dL (8.5-10.5) 03/01/25 15:55 Magnesium 2.8 mg/dL (1.7-2.3) H 03/01/25 15:55 Total Bilirubin 0.6 mg/dL (0.15-1.2) 03/01/25 15:55 AST 24 U/L (0-32) 03/01/25 15:55 ALT 15 U/L (0-33) 03/01/25 15:55 Alkaline Phosphatase 65 U/L (35-105) 03/01/25 15:55 Total Protein 7.2 g/dL (6.6-8.7) 03/01/25 15:55 Albumin 3.4 g/dL (3.5-5.2) L 03/01/25 15:55 Globulin 3.8 g/dL (1.3-4.6) 03/01/25 15:55 Urine Color Yellow (Yellow) 03/01/25 16:10 Urine Appearance Clear (CLEAR) 03/01/25 16:10 Urine pH 5.0 (5-7) 03/01/25 16:10 Ur Specific [place] 1.012 (1.005-1.030) 03/01/25 16:10 Urine Protein Trace (Negative) A 03/01/25 16:10 Urine Glucose (UA) Negative (Normal) 03/01/25 16:10 Urine Ketones Negative (Negative) 03/01/25 16:10 Urine Blood Trace (Negative) A 03/01/25 16:10 Urine Nitrate Negative (Negative) 03/01/25 16:10 Urine Bilirubin Negative (Negative) 03/01/25 16:10 Urine Urobilinogen 0.2 mg/dL (Negative) 03/01/25 16:10 Ur Leukocyte Esterase Negative (Negative) 03/01/25 16:10 Urine RBC 0-2 /hpf (0-2) 03/01/25 16:10 Urine WBC 0-5 /hpf (0-5) 03/01/25 16:10 Ur Squamous Epith Cells 0-5 /hpf (0-5) 03/01/25 16:10 Amorphous Sediment Not Reportable 03/01/25 16:10 Urine Bacteria None seen /hpf (NONE) 03/01/25 16:10 Hyaline Casts 12.81 /lpf 03/01/25 16:10 All radiology interpretation(s) finalized by discharge Discharge Plan Discharge Patient Disposition: Home Clinical Impression: Gastroenteritis, Pleural effusion Condition: Stable Prescriptions: New ondansetron 4 mg tablet,disintegrating 4 mg PO Q8H PRN (Reason: nausea and vomiting) 4 Days Qty: 14 0RF No Action Eliquis 2.5 mg tablet 2.5 mg PO BID aspirin [Adult Low Dose Aspirin] 81 mg tablet,delayed release (DR/EC) 81 mg PO DAILY furosemide 40 mg tablet 40 mg PO DAILY acetaminophen [Tylenol Extra Strength] 500 mg Tablet 1,000 mg PO Q6H PRN (Reason: Fever Or Pain) metoprolol tartrate 50 mg tablet 50 mg PO BID rosuvastatin 20 mg tablet 20 mg PO BEDTIME potassium chloride 10 mEq tablet,ER particles/crystals 10 meq PO DAILY hydrocodone-acetaminophen 5-325 mg tablet 1 tab PO Q6H PRN (Reason: pain) Qty: 15 0RF Discharge Orders: Discharge ED (Routine); Ordered 03/01/25 Ordered By: Crys Valdovinos Referrals: Bandar Zaman MD [Primary Care Provider, Internal Medicine] Discharge Diet: Clear Liquid Discharge Activity: Resume usual activity Patient Instructions: Clear Liquid Diet (ED), Acute Nausea and Vomiting (ED), Patient Portal & Matt Instructions Activity Restrictions/Additional Instructions: - Clear liquids only until nausea, vomiting resolves Return to ED if you have worsening symptoms, started having abdominal pain, or fever over 100.4 ?F - Your pleural effusions need to be followed up with with your doctor. This needs to be worked up outpatient. 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
[2025-03-01] MEDS: ondansetron 2 mg/ML SDV 2 mL 4 MG IVP (15:49)
[2025-03-01 16:10] LABS: Hematocrit 43.4 % (36-47); Hemoglobin 13.40 g/dL (11.27-16.99); Mean Corpuscular HGB Conc 30.9 g/dL (30-55); Mean Corpuscular Hemoglobin 28.2 pg (27-33); Mean Corpuscular Volume 91.2 fl (85-98); Nucleated Red Blood Cells % 0 %; Platelet Count 202 10^3/cmm (157-399); Red Blood Count 4.76 10^6/uL (3.85-5.65); White Blood Count 4.31 10^3/uL (3.29-11.43)
--- NOTE | 2025-03-01 16:16 | PC.PHAR ---
Pt states Olemsartan 20mg from 08/19/24 90ds was dc'd and she no longer takes.
[2025-03-01 16:17] LABS: Glucose Urine UA Negative (Normal); Nitrate Urine Negative (Negative); Specific Gravity, Urine 1.012 (1.005-1.030)
[2025-03-01 16:22] LABS: Add Urine Microscopic? YES
[2025-03-01 16:23] LABS: Alanine Aminotransferase 15 U/L (0-33); Albumin Level 3.4 g/dL (3.5-5.2); Alkaline Phosphatase 65 U/L (35-105); Anion Gap 17.0 (5-19); Aspartate Amino Transferase 24 U/L (0-32); Blood Urea Nitrogen 48 mg/dL (8-23); Calcium 8.9 mg/dL (8.5-10.5); Carbon Dioxide 26 mmol/L (22-29); Chloride 98 mmol/L (98-107); Creatinine Clr Calc Pharmacy 24.6117; Globulin 3.8 g/dL (1.3-4.6); Glucose 120 mg/dL (65-115); Magnesium 2.8 mg/dL (1.7-2.3); Osmolality Calculated 298 mOsm/kg (285-295); Potassium 4.0 mmol/L (3.5-5.1); Sodium 137 mmol/L (136-145); Total Protein 7.2 g/dL (6.6-8.7)
[2025-03-01] MEDS: diphenhydrAMINE 50 mg/mL SDV 1mL 25 MG IVP (17:17)
[2025-03-01 18:36] VITALS: BP 135/98; PULSE 86; O2SAT 92
== END 2025-03-01 18:38 | disposition home or self-care (01) ==
PROVIDERS: Emergency Provider Physician Assistant; PCP Internal Medicine
DX: K52.9 Noninfective gastroenteritis and colitis, unspecified (principal); J90 Pleural effusion, not elsewhere classified; Z79.01 Long term (current) use of anticoagulants; Z79.82 Long term (current) use of aspirin; I50.9 Heart failure, unspecified
CPT/HCPCS: 36415; 74022; 80053; 81001; 83735; 85025; 96361; 96374; 96375; 99284; J0780; J1200; J2405; J7120